=== PATIENT | male | born 1955 | race African-American/Black ===

== ENCOUNTER 2018-12-09 11:47 | Inpatient (IN) | payer OTHER ==
[2018-12-09 12:12] VITALS: BMI 19.9
--- NOTE | 2018-12-09 14:06 | HP ---
COWS - Scale Resting Pulse: 0= [place] 80 or Below Sweatin= Chills/Flushing Restless Observation: 1= Difficult to Sit Still Pupil Size: 2= Moderately Dilated Bone or Joint Aches: 2= Severe Diffuse Aches Runny Nose/ Eye Tearin= Runny Nose/Eyes GI Upset > 30mins: 2= Nausea/Diarrhea Tremor Observation: 0= None Yawning Observation: 0= None Anxiety or Irritability: 2=Irritable/Anxious Goose Flesh Skin: 0=Smooth Skin COWS Score: 12 CIWA Score Nausea/Vomitin Muscle Tremors: None Anxiety: 3 Agitation: 3 Paroxysmal Sweats: 2 Orientation: 1-Uncertain about Date Tacttile Disturbances: 0-None Auditory Disturbances: 0-None Visual Disturbances: 0-None Headache: 3-Moderate CIWA-Ar Total Score: 14 - Admission Criteria [facility] Guidelines: Admission for Medically Managed Detox: Requires at least one of the followin. CIWA greater than 12 2. Seizures within the past 24 hours 3. Delirium tremens within the past 24 hours 4. Hallucinations within the past 24 hours 5. Acute intervention needed for co occurring medical disorder 6. Acute intervention needed for co occurring psychiatric disorder 7. Severe withdrawal that cannot be handled at a lower level of care (continued vomiting, continued diarrhea, abnormal vital signs) requiring intravenous medication and/or fluids 8. Admission [facility] Chief Complaint: PATIENT PRESENTS WITH ETOH/HEROIN WITHDRAWAL SX. Allergies/Adverse Reactions: Allergies Allergy/AdvReac Type Severity Reaction Status Date / Time No Known Allergies Allergy Verified 05/19/16 16:07 History of Present Illness: PATIENT IS KNOWN TO FACILITY DUE TO PREVIOUS ADMISSION. LAST ADMISSION TO DETOX WAS IN 2016. PATIENT STATES HE STARTED SNIFFING HEROIN AT AGE 13 AND USES 10 BAGS DAILY. LAST USE THIS MORNING. DENIES IVDA AND OVERDOSE. PATIENT ALSO DRINKING ETOH AT AGE 13 WELL. DRINKS 1 PINT DAILY, ILENE 0.132, LAST DRINK ONE HOUR AGO. PATIENT DENIES HX OF SEIZURES AND BLACKOUTS. DOES REPORT H/O EYE SUPPLY TECH AND BINGE DRINKING. + SOCIAL MARIJUANA USE. PMH INCLUDES HTN, GERD. DENIES MENTAL ILLNESS AND SI/HI AND SUICIDE ATTEMPTS. Exam Limitations: Intoxication - Ebola screening Have you traveled outside of the country in the last 21 days: No Have you had contact with anyone from an Ebola affected area: No Have you been sick,other than usual withdrawal symptoms: No Do you have a fever: No - Review of Systems Constitutional: Chills, Night Sweats, Changes in sleep, Unintentional Wgt. Loss EENT: reports: Tearing, Nose Congestion Respiratory: reports: No Symptoms reported Cardiac: reports: No Symptoms Reported GI: reports: Diarrhea, Nausea, Poor Fluid Intake, Abdominal cramping : reports: No Symptoms Reported Musculoskeletal: reports: Back Pain, Joint Pain, Muscle Pain Integumentary: reports: Sweating Neuro: reports: Headache Endocrine: reports: Unexplained Weight Loss Hematology: reports: No Symptoms Reported Psychiatric: reports: Anxious (FORGETFUL WITH DATE) Patient History - Patient Medical History Hx Anemia: No Hx Asthma: No Hx Chronic Obstructive Pulmonary Disease (COPD): No Hx Cancer: No Hx Cardiac Disorders: No Hx Congestive Heart Failure: No Hx Hypertension: Yes Hx Hypercholesterolemia: No Hx Pacemaker: No HX Cerebrovascular Accident: No Hx Seizures: No Hx Dementia: No Hx Diabetes: No Hx Gastrointestinal Disorders: Yes (GERD) Hx Liver Disease: No Hx Genitourinary Disorders: No Hx Sexually Transmitted Disorders: No Hx Renal Disease (ESRD): No Hx Thyroid Disease: No Hx Human Immunodeficiency Virus (HIV): No Hx Hepatitis C: No Hx Depression: No Hx Suicide Attempt: No Hx Bipolar Disorder: No Hx Schizophrenia: No - Patient Surgical History Past Surgical History: Yes Hx Neurologic Surgery: No Hx Cataract Extraction: No Hx Cardiac Surgery: No Hx Lung Surgery: No Hx Breast Surgery: No Hx Breast Biopsy: No Hx Abdominal Surgery: No Hx Appendectomy: No Hx Cholecystectomy: No Hx Genitourinary Surgery: No Hx Section: No Hx Orthopedic Surgery: Yes (left wrist fx 2009) Hx Hysterectomy: No Anesthesia Reaction: No - PPD History Previous Implant?: Yes Documented Results: Negative w/o proof Date: 04/30/16 Results: TBD PPD to be Administered?: Yes - Smoking Cessation Smoking history: Current every day smoker Have you smoked in the past 12 months: Yes Aproximately how many cigarettes per day: 20 Hx Chewing Tobacco Use: No Initiated information on smoking cessation: Yes 'Breaking Loose' booklet given: 12/09/18 - Substance & Tx. History Hx Alcohol Use: Yes Hx Substance Use: Yes Substance Use Type: Alcohol, Heroin Hx Substance Use Treatment: Yes - Substances Abused Alcohol Route: Oral Frequency: Daily Amount used: 1 PINT Age of first use: 13 Date of Last Use: 12/09/18 Heroin Route: Inhalation Frequency: Daily Amount used: 10 BAGS Age of first use: 13 Date of Last Use: 12/09/18 Family Disease History - Family Disease History Family Disease History: [place]: Father (BONE CA-), Mother, Other: Grandparent () Admission Physical Exam [facility] - Vital Signs Vital Signs: Vital Signs - 24 hr 12/09/18 12:10 Temperature 98.7 F Pulse Rate 80 Respiratory 18 Rate Blood Pressure 122/74 - Physical General Appearance: Yes: Intoxicated, Thin, Sweating, Anxious HEENTM: Yes: EOMI, Hearing grossly Normal, Normocephalic, Normal Voice, MADELINE, Pharynx Normal, Nasal Congestion Respiratory: Yes: Chest Non-Tender, No Respiratory Distress, No Accessory Muscle Use, Wheezing Neck: Yes: No masses,lesions,Nodules, Supple, Trachea in good position Breast: Yes: Breast Exam Deferred Cardiology: Yes: Regular Rhythm, Regular Rate, S1, S2 Abdominal: Yes: Normal Bowel Sounds, Non Tender, Soft Genitourinary: Yes: Within Normal Limits Back: Yes: Muscle Spasm Musculoskeletal: Yes: full range of Motion, Gait Steady, Back pain, Muscle Pain Extremities: Yes: Normal Inspection, Normal Range of Motion, Non-Tender Neurological: Yes: cmo II-XII NML intact, Alert, Motor Strength 5/5, Normal Response, Other (anxious and forgetful with date) Integumentary: Yes: Normal Color, Warm, Moist - Diagnostic (1) GERD (gastroesophageal reflux disease) Current Visit: Yes Status: Chronic Qualifiers: Esophagitis presence: esophagitis presence not specified Qualified Code(s) : K21.9 - Gastro-esophageal reflux disease without esophagitis (2) Alcohol dependence with uncomplicated withdrawal Current Visit: Yes Status: Acute (3) Hypertension Current Visit: Yes Status: Chronic Qualifiers: Hypertension type: essential hypertension Qualified Code(s): I10 - Essential (primary) hypertension (4) Nicotine dependence Current Visit: Yes Status: Chronic Qualifiers: Nicotine product type: cigarettes Substance use status: uncomplicated Qualified Code(s): F17.210 - Nicotine dependence, cigarettes, uncomplicated (5) Opioid dependence with withdrawal Current Visit: Yes Status: Acute (6) Weight loss Current Visit: Yes Status: Acute Cleared for Admission [facility] - Detox or Rehab [facility] Level of Care: Medically Managed Detox Regimen/Protocol: Methadone/Librium [facility] Breath Alcohol Content Breath Alcohol Content: 0.132 Urine Drug Screen - Results Drug Screen Negative: No Urine Drug Screen Results: THC-Marijuana, OPI-Opiates, BZO-Benzodiazepines Inpatient Rehab Admission - Rehab Decision to Admit Inpatient rehab admission?: No
[2018-12-09] MEDS ORDERED: IBUPROFEN 400 MG TABLET (FP) PO PRN (14:25)
[2018-12-09] MEDS ORDERED: MENTHOL/PHENOL 1 EACH UD MM PRN (14:25)
[2018-12-09] MEDS ORDERED: BISMUTH SUBSALICYLATE 524 MG/30 ML UD PO PRN (14:25)
[2018-12-09] MEDS ORDERED: hydrOXYzine PAMOATE 25 MG CAPSULE (FP) PO PRN (14:25)
[2018-12-09] MEDS ORDERED: MAGNESIUM CITRATE 300 ML BOTTLE PO PRN (14:25)
[2018-12-09] MEDS ORDERED: METHOCARBAMOL 500 MG TABLET PO PRN (14:25)
[2018-12-09] MEDS ORDERED: MAG HYDROX/AL HYDROX/SIMETH 30 ML UNIT-DOSE CUP PO PRN (14:25)
[2018-12-09] MEDS ORDERED: MELATONIN 5 MG TABLETS PO PRN (14:25)
[2018-12-09] MEDS ORDERED: NICOTINE POLACRILEX 2 MG GUM BUC PRN (14:25)
[2018-12-09] MEDS ORDERED: MAGNESIUM HYDROX 2400MG/30ML ORAL SUSPENSION 30 ML CUP PO PRN (14:25)
[2018-12-09] MEDS ORDERED: ACETAMINOPHEN 325 MG TABLET (FP) PO PRN (14:25)
[2018-12-09] MEDS ORDERED: guaiFENesin 200 MG/10 ML 10 ML UNIT-DOSE CUPS PO PRN (14:25)
[2018-12-09] MEDS ORDERED: cloNIDine HCL 0.1 MG TABLET PO PRN (14:27)
[2018-12-09] MEDS ORDERED: NALOXONE HCL 0.4 MG/ML VIAL IVPUSH PRN (14:27)
[2018-12-09] MEDS ORDERED: METHADONE HCL 10 MG TABLET (FOR DETOX USE ONLY) PO ONE ×2 (14:28→23:00)
[2018-12-09] MEDS ORDERED: chlordiazePOXIDE HCL 25 MG CAPSULE PO PRN (14:29)
[2018-12-09] MEDS: chlordiazePOXIDE HCL 25 MG CAPSULE PO SCH ×2 (17:11→22:31)
[2018-12-09] MEDS: THIAMINE HCL 100 MG TABLET (FP) PO SCH (22:31)
[2018-12-10 05:19] LABS: EPI CELLS 14.3 /HPF (0-5); HYALINE CASTS 80 /hpf (0-8); URINE APPEARANCE TURBID; URINE BACTERIA 8846.226 /hpf (NEGATIVE); URINE BILIRUBIN 1+ (NEGATIVE); URINE COLOR DK YELLOW; URINE GLUCOSE (UA) NEGATIVE (NEGATIVE); URINE KETONE TRACE (NEGATIVE); URINE LEUK ESTERASE 1+ (NEGATIVE); URINE NITRITE POSITIVE (NEGATIVE); URINE PROTEIN 1+ (NEGATIVE); URINE WBC 30 /hpf (0-5)
[2018-12-10] MEDS: chlordiazePOXIDE HCL 25 MG CAPSULE PO SCH ×4 (05:38→22:22)
[2018-12-10] MEDS ORDERED: ONDANSETRON *ODT* 4 MG TABLET SL ONE (09:09)
--- NOTE | 2018-12-10 09:30 | EKG ---
Test Reason : Blood Pressure : / mmHG Vent. Rate : 075 BPM Atrial Rate : 075 BPM P-R Int : 208 ms QRS Dur : 086 ms QT Int : 394 ms P-R-T Axes : 069 018 062 degrees QTc Int : 439 ms NORMAL SINUS RHYTHM SEPTAL INFARCT , AGE UNDETERMINED ABNORMAL ECG WHEN COMPARED WITH ECG OF 12-MAY-2016 12:12, VENT. RATE HAS INCREASED BY 34 BPM SEPTAL INFARCT IS NOW PRESENT Confirmed by CHINEDU RILEY, CHANDNI ([id number]) on 12/10/2018 9:29:29 AM Referred By: Confirmed By:CHANDNI CHE MD
[2018-12-10] MEDS ORDERED: METHADONE HCL 10 MG TABLET (FOR DETOX USE ONLY) PO ONE (10:00)
[2018-12-10] MEDS: amLODIPine BESYLATE 5 MG TABLET (FP) PO SCH (10:12)
[2018-12-10] MEDS: PANTOPRAZOLE 40 MG TABLET (FP) PO SCH (10:12)
[2018-12-10] MEDS: NICOTINE 21 MG/24 HOURS TOPICAL PATCH TD SCH (10:12)
[2018-12-10] MEDS: PRENATAL VITAMINS W/ FOLIC ACID TABLET (FP) PO SCH (10:12)
[2018-12-10] MEDS: LOSARTAN POTASSIUM 25 MG TABLET PO SCH (10:12)
[2018-12-10 10:44] LABS: URINE RBC 13.7 /hpf (0-4)
[2018-12-10 12:15] LABS: HEMATOCRIT 38.6 % (35.4-49); HEMOGLOBIN 13.1 GM/dL (11.7-16.9); MCH 32.1 pg (25.7-33.7); MCHC 34.1 g/dl (32.0-35.9); MEAN CELL VOLUME 94.3 fl (80-96); MEAN PLT VOLUME 9.5 fl (7.5-11.1); PLATELET COUNT 205 K/MM3 (134-434); RBC 4.09 M/mm3 (4.00-5.60); RDW 13.6 % (11.9-15.9); WHITE BLOOD COUNT 6.4 K/mm3 (4.0-10.0)
[2018-12-10 12:49] LABS: ALBUMIN 3.4 g/dl (3.4-5.0); ALK PHOS 55 U/L (45-117); ANION GAP 9 MMOL/L (8-16); BILIRUBIN,TOTAL 0.6 mg/dL (0.2-1); BLOOD UREA NITROGEN 12 mg/dL (7-18); CALCIUM 8.7 mg/dL (8.5-10.1); CHLORIDE 103 mmol/L (98-107); CO2 29 mmol/L (21-32); CREATININE 0.7 mg/dL (0.55-1.3); GLUCOSE,RANDOM 81 mg/dL (74-106); SGOT/AST 51 U/L (15-37); SGPT/ALT 40 U/L (13-61); SODIUM 141 mmol/L (136-145); TOT PROT 6.7 g/dl (6.4-8.2)
--- NOTE | 2018-12-10 14:03 | PN ---
S CIWA - CIWA Score Nausea/Vomitin-Mild Nausea/No Vomiting Muscle Tremors: 3 Anxiety: 2 Agitation: 1-Slight > Activity Paroxysmal Sweats: 1-Minimal Palms Moist Orientation: 1-Uncertain about Date Tacttile Disturbances: 0-None Auditory Disturbances: 0-None Visual Disturbances: 0-None Headache: 1-Very Mild CIWA-Ar Total Score: 10 S Progress Note (SOAP) Subjective: feeling nausea this morning received one dose zofran doing better had breakfast Objective: 12/10/18 14:01 Vital Signs Temperature 97.0 F L 12/10/18 13:22 Pulse Rate 73 12/10/18 13:22 Respiratory Rate 16 12/10/18 13:22 Blood Pressure 157/99 12/10/18 13:22 O2 Sat by Pulse Oximetry (%) Laboratory Last Values WBC 6.4 K/mm3 (4.0-10.0) 12/10/18 07:30 RBC 4.09 M/mm3 (4.00-5.60) 12/10/18 07:30 Hgb 13.1 GM/dL (11.7-16.9) 12/10/18 07:30 Hct 38.6 % (35.4-49) 12/10/18 07:30 MCV 94.3 fl (80-96) 12/10/18 07:30 MCH 32.1 pg (25.7-33.7) 12/10/18 07:30 MCHC 34.1 g/dl (32.0-35.9) 12/10/18 07:30 RDW 13.6 % (11.9-15.9) 12/10/18 07:30 Plt Count 205 K/MM3 (134-434) D 12/10/18 07:30 MPV 9.5 fl (7.5-11.1) 12/10/18 07:30 Sodium 141 mmol/L (136-145) 12/10/18 07:30 Potassium 4.0 mmol/L (3.5-5.1) 12/10/18 07:30 Chloride 103 mmol/L (98-107) 12/10/18 07:30 Carbon Dioxide 29 mmol/L (21-32) 12/10/18 07:30 Anion Gap 9 MMOL/L (8-16) 12/10/18 07:30 BUN 12 mg/dL (7-18) 12/10/18 07:30 Creatinine 0.7 mg/dL (0.55-1.3) 12/10/18 07:30 Creat Clearance w eGFR 113.18 (>60) 12/10/18 07:30 Random Glucose 81 mg/dL (74-106) 12/10/18 07:30 Calcium 8.7 mg/dL (8.5-10.1) 12/10/18 07:30 Total Bilirubin 0.6 mg/dL (0.2-1) 12/10/18 07:30 AST 51 U/L (15-37) H 12/10/18 07:30 ALT 40 U/L (13-61) 12/10/18 07:30 Alkaline Phosphatase 55 U/L (45-117) 12/10/18 07:30 Total Protein 6.7 g/dl (6.4-8.2) 12/10/18 07:30 Albumin 3.4 g/dl (3.4-5.0) 12/10/18 07:30 Urine Color Dk yellow 12/10/18 00:05 Urine Appearance Turbid 12/10/18 00:05 Urine pH 5.0 (5.0-8.0) 12/10/18 00:05 Ur Specific [place] 1.022 (1.010-1.035) 12/10/18 00:05 Urine Protein 1+ (NEGATIVE) H 12/10/18 00:05 Urine Glucose (UA) Negative (NEGATIVE) 12/10/18 00:05 Urine Ketones Trace (NEGATIVE) H 12/10/18 00:05 Urine Blood Negative (NEGATIVE) 12/10/18 00:05 Urine Nitrite Positive (NEGATIVE) H 12/10/18 00:05 Urine Bilirubin 1+ (NEGATIVE) H 12/10/18 00:05 Urine Urobilinogen 1.0 mg/dL (0.2-1.0) 12/10/18 00:05 Ur Leukocyte Esterase 1+ (NEGATIVE) H 12/10/18 00:05 Urine WBC (Auto) 30 /hpf (0-5) 12/10/18 00:05 Urine RBC (Auto) 13.7 /hpf (0-4) 12/10/18 00:05 Urine Casts (Auto) 80 /hpf (0-8) 12/10/18 00:05 U Pathogenic Cast Auto None seen (NEGATIVE) 12/10/18 00:05 U Epithel Cells (Auto) 14.3 /HPF (0-5) 12/10/18 00:05 Urine Bacteria (Auto) 8846.226 /hpf (NEGATIVE) 12/10/18 00:05 RPR Titer Nonreactive (NONREACTIVE) 12/10/18 07:30 HIV 1&2 Antibody Screen Negative 12/10/18 07:30 HIV P24 Antigen Negative 12/10/18 07:30 lab noted uti Assessment: 12/10/18 14:03 withdrawal sx uti Plan: continue detox zofran bactrium ds bid
[2018-12-10] MEDS: SULFAMETHOXAZOLE/TRIMETHOPRIM 800MG/160MG D.S. TABLET PO SCH ×2 (16:03→22:22)
[2018-12-10] MEDS: THIAMINE HCL 100 MG TABLET (FP) PO SCH (22:21)
[2018-12-11] MEDS: chlordiazePOXIDE HCL 25 MG CAPSULE PO SCH ×2 (05:11→10:32)
[2018-12-11] MEDS: PRENATAL VITAMINS W/ FOLIC ACID TABLET (FP) PO SCH (09:50)
[2018-12-11] MEDS: PANTOPRAZOLE 40 MG TABLET (FP) PO SCH (09:50)
[2018-12-11] MEDS: amLODIPine BESYLATE 5 MG TABLET (FP) PO SCH (09:50)
[2018-12-11] MEDS: SULFAMETHOXAZOLE/TRIMETHOPRIM 800MG/160MG D.S. TABLET PO SCH ×2 (09:51→22:34)
[2018-12-11] MEDS: LOSARTAN POTASSIUM 25 MG TABLET PO SCH (09:51)
[2018-12-11] MEDS: NICOTINE 21 MG/24 HOURS TOPICAL PATCH TD SCH (09:53)
[2018-12-11] MEDS ORDERED: METHADONE HCL 10 MG TABLET (FOR DETOX USE ONLY) PO ONE (10:00)
[2018-12-11] MEDS ORDERED: GABAPENTIN 100 MG CAPSULE (FP) PO ONE (10:00)
--- NOTE | 2018-12-11 13:36 | PN ---
[facility] COWS - Scale Resting Pulse: 0= [place] 80 or Below Sweatin= Chills/Flushing Restless Observation: 0= Sits Still Pupil Size: 0= Normal to Room Light Bone or Joint Aches: 2= Severe Diffuse Aches Runny Nose/ Eye Tearin= Nasal Congestion GI Upset > 30mins: 1= Stomach Cramp Tremor Observation of Outstretched Hands: 2= Slight Tremor Visible Yawning Observation: 2= >3x During Session Anxiety or Irritability: 2=Irritable/Anxious Goose Flesh Skin: 0=Smooth Skin COWS Score: 11
[2018-12-11] MEDS: GABAPENTIN 100 MG CAPSULE (FP) PO SCH ×2 (13:38→22:34)
--- NOTE | 2018-12-11 13:38 | PN ---
[facility] CIWA - CIWA Score Nausea/Vomitin-No Nausea/No Vomiting Muscle Tremors: 2 Anxiety: 1-Mildly Anxious Agitation: 1-Slight > Activity Paroxysmal Sweats: 1-Minimal Palms Moist Orientation: 0-Oriented Tacttile Disturbances: 0-None Auditory Disturbances: 0-None Visual Disturbances: 0-None Headache: 0-None Present CIWA-Ar Total Score: 5 S COWS - Scale Resting Pulse: 0= [place] 80 or Below Sweatin= Chills/Flushing Restless Observation: 0= Sits Still Pupil Size: 0= Normal to Room Light Bone or Joint Aches: 1= Mild Discomfort Runny Nose/ Eye Tearin= Nasal Congestion GI Upset > 30mins: 2= Nausea/Diarrhea Tremor Observation of Outstretched Hands: 2= Slight Tremor Visible Yawning Observation: 0= None Anxiety or Irritability: 2=Irritable/Anxious Goose Flesh Skin: 0=Smooth Skin COWS Score: 9 S Progress Note (SOAP) Subjective: diarrhea muscle cramping adominal cramping treated with bentyl Objective: 12/11/18 13:47 Vital Signs Temperature 97.7 F 12/11/18 09:22 Pulse Rate 65 12/11/18 09:22 Respiratory Rate 18 12/11/18 09:22 Blood Pressure 133/87 12/11/18 09:22 O2 Sat by Pulse Oximetry (%) Laboratory Last Values WBC 6.4 K/mm3 (4.0-10.0) 12/10/18 07:30 RBC 4.09 M/mm3 (4.00-5.60) 12/10/18 07:30 Hgb 13.1 GM/dL (11.7-16.9) 12/10/18 07:30 Hct 38.6 % (35.4-49) 12/10/18 07:30 MCV 94.3 fl (80-96) 12/10/18 07:30 MCH 32.1 pg (25.7-33.7) 12/10/18 07:30 MCHC 34.1 g/dl (32.0-35.9) 12/10/18 07:30 RDW 13.6 % (11.9-15.9) 12/10/18 07:30 Plt Count 205 K/MM3 (134-434) D 12/10/18 07:30 MPV 9.5 fl (7.5-11.1) 12/10/18 07:30 Sodium 141 mmol/L (136-145) 12/10/18 07:30 Potassium 4.0 mmol/L (3.5-5.1) 12/10/18 07:30 Chloride 103 mmol/L (98-107) 12/10/18 07:30 Carbon Dioxide 29 mmol/L (21-32) 12/10/18 07:30 Anion Gap 9 MMOL/L (8-16) 12/10/18 07:30 BUN 12 mg/dL (7-18) 12/10/18 07:30 Creatinine 0.7 mg/dL (0.55-1.3) 12/10/18 07:30 Creat Clearance w eGFR 113.18 (>60) 12/10/18 07:30 Random Glucose 81 mg/dL (74-106) 12/10/18 07:30 Calcium 8.7 mg/dL (8.5-10.1) 12/10/18 07:30 Total Bilirubin 0.6 mg/dL (0.2-1) 12/10/18 07:30 AST 51 U/L (15-37) H 12/10/18 07:30 ALT 40 U/L (13-61) 12/10/18 07:30 Alkaline Phosphatase 55 U/L (45-117) 12/10/18 07:30 Total Protein 6.7 g/dl (6.4-8.2) 12/10/18 07:30 Albumin 3.4 g/dl (3.4-5.0) 12/10/18 07:30 Urine Color Dk yellow 12/10/18 00:05 Urine Appearance Turbid 12/10/18 00:05 Urine pH 5.0 (5.0-8.0) 12/10/18 00:05 Ur Specific [place] 1.022 (1.010-1.035) 12/10/18 00:05 Urine Protein 1+ (NEGATIVE) H 12/10/18 00:05 Urine Glucose (UA) Negative (NEGATIVE) 12/10/18 00:05 Urine Ketones Trace (NEGATIVE) H 12/10/18 00:05 Urine Blood Negative (NEGATIVE) 12/10/18 00:05 Urine Nitrite Positive (NEGATIVE) H 12/10/18 00:05 Urine Bilirubin 1+ (NEGATIVE) H 12/10/18 00:05 Urine Urobilinogen 1.0 mg/dL (0.2-1.0) 12/10/18 00:05 Ur Leukocyte Esterase 1+ (NEGATIVE) H 12/10/18 00:05 Urine WBC (Auto) 30 /hpf (0-5) 12/10/18 00:05 Urine RBC (Auto) 13.7 /hpf (0-4) 12/10/18 00:05 Urine Casts (Auto) 80 /hpf (0-8) 12/10/18 00:05 U Pathogenic Cast Auto None seen (NEGATIVE) 12/10/18 00:05 U Epithel Cells (Auto) 14.3 /HPF (0-5) 12/10/18 00:05 Urine Bacteria (Auto) 8846.226 /hpf (NEGATIVE) 12/10/18 00:05 RPR Titer Nonreactive (NONREACTIVE) 12/10/18 07:30 HIV 1&2 Antibody Screen Negative 12/10/18 07:30 HIV P24 Antigen Negative 12/10/18 07:30 lab noted Assessment: 12/11/18 13:50 alcohol and opiate withdrawal sx Plan: continue detox
[2018-12-11] MEDS ORDERED: cloNIDine HCL 0.1 MG TABLET PO PRN (13:49)
[2018-12-11] MEDS ORDERED: BISMUTH SUBSALICYLATE 262 MG TAB.CHEW PO ONE (14:00)
[2018-12-11] MEDS ORDERED: DICYCLOMINE HCL 10 MG CAPSULE PO ONE (14:00)
[2018-12-11] MEDS ORDERED: BISMUTH SUBSALICYLATE 262 MG/15 ML BTL PO ONE (14:09)
[2018-12-11] MEDS: RANITIDINE HCL 150 MG TABLET (FP) PO SCH ×2 (15:34→22:34)
[2018-12-11] MEDS ORDERED: chlordiazePOXIDE HCL 10 MG CAPSULE PO PRN (17:00)
[2018-12-11] MEDS: chlordiazePOXIDE HCL 10 MG CAPSULE PO SCH ×2 (18:10→22:34)
[2018-12-11] MEDS: THIAMINE HCL 100 MG TABLET (FP) PO SCH (22:33)
[2018-12-12] MEDS: GABAPENTIN 100 MG CAPSULE (FP) PO SCH (06:13)
[2018-12-12] MEDS: chlordiazePOXIDE HCL 10 MG CAPSULE PO SCH ×2 (06:13→10:10)
[2018-12-12 09:14] VITALS: BP 149/92; PULSE 61; TEMP 96.8
[2018-12-12] MEDS ORDERED: METHADONE HCL 10 MG TABLET (FOR DETOX USE ONLY) PO ONE (10:00)
[2018-12-12] MEDS: amLODIPine BESYLATE 5 MG TABLET (FP) PO SCH (10:10)
[2018-12-12] MEDS: SULFAMETHOXAZOLE/TRIMETHOPRIM 800MG/160MG D.S. TABLET PO SCH (10:10)
[2018-12-12] MEDS: LOSARTAN POTASSIUM 25 MG TABLET PO SCH (10:10)
[2018-12-12] MEDS: RANITIDINE HCL 150 MG TABLET (FP) PO SCH (10:10)
[2018-12-12] MEDS: PRENATAL VITAMINS W/ FOLIC ACID TABLET (FP) PO SCH (10:11)
[2018-12-12] MEDS: NICOTINE 21 MG/24 HOURS TOPICAL PATCH TD SCH (10:11)
--- NOTE | 2018-12-12 12:28 | DS ---
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 pharmacy contine uti treatment bring in medication list and lab report to aftercare appointment - Physical Exam Results Vital Signs: Vital Signs Temperature 96.8 F L 12/12/18 09:13 Pulse Rate 61 12/12/18 09:13 Respiratory Rate 18 12/12/18 09:13 Blood Pressure 149/92 12/12/18 09:13 O2 Sat by Pulse Oximetry (%) Pertinent Admission Physical Exam Findings: Vital Signs Temperature 96.8 F L 12/12/18 09:13 Pulse Rate 61 12/12/18 09:13 Respiratory Rate 18 12/12/18 09:13 Blood Pressure 149/92 12/12/18 09:13 O2 Sat by Pulse Oximetry (%) Laboratory Last Values WBC 6.4 K/mm3 (4.0-10.0) 12/10/18 07:30 RBC 4.09 M/mm3 (4.00-5.60) 12/10/18 07:30 Hgb 13.1 GM/dL (11.7-16.9) 12/10/18 07:30 Hct 38.6 % (35.4-49) 12/10/18 07:30 MCV 94.3 fl (80-96) 12/10/18 07:30 MCH 32.1 pg (25.7-33.7) 12/10/18 07:30 MCHC 34.1 g/dl (32.0-35.9) 12/10/18 07:30 RDW 13.6 % (11.9-15.9) 12/10/18 07:30 Plt Count 205 K/MM3 (134-434) D 12/10/18 07:30 MPV 9.5 fl (7.5-11.1) 12/10/18 07:30 Sodium 141 mmol/L (136-145) 12/10/18 07:30 Potassium 4.0 mmol/L (3.5-5.1) 12/10/18 07:30 Chloride 103 mmol/L (98-107) 12/10/18 07:30 Carbon Dioxide 29 mmol/L (21-32) 12/10/18 07:30 Anion Gap 9 MMOL/L (8-16) 12/10/18 07:30 BUN 12 mg/dL (7-18) 12/10/18 07:30 Creatinine 0.7 mg/dL (0.55-1.3) 12/10/18 07:30 Creat Clearance w eGFR 113.18 (>60) 12/10/18 07:30 Random Glucose 81 mg/dL (74-106) 12/10/18 07:30 Calcium 8.7 mg/dL (8.5-10.1) 12/10/18 07:30 Total Bilirubin 0.6 mg/dL (0.2-1) 12/10/18 07:30 AST 51 U/L (15-37) H 12/10/18 07:30 ALT 40 U/L (13-61) 12/10/18 07:30 Alkaline Phosphatase 55 U/L (45-117) 12/10/18 07:30 Total Protein 6.7 g/dl (6.4-8.2) 12/10/18 07:30 Albumin 3.4 g/dl (3.4-5.0) 12/10/18 07:30 Urine Color Dk yellow 12/10/18 00:05 Urine Appearance Turbid 12/10/18 00:05 Urine pH 5.0 (5.0-8.0) 12/10/18 00:05 Ur Specific [place] 1.022 (1.010-1.035) 12/10/18 00:05 Urine Protein 1+ (NEGATIVE) H 12/10/18 00:05 Urine Glucose (UA) Negative (NEGATIVE) 12/10/18 00:05 Urine Ketones Trace (NEGATIVE) H 12/10/18 00:05 Urine Blood Negative (NEGATIVE) 12/10/18 00:05 Urine Nitrite Positive (NEGATIVE) H 12/10/18 00:05 Urine Bilirubin 1+ (NEGATIVE) H 12/10/18 00:05 Urine Urobilinogen 1.0 mg/dL (0.2-1.0) 12/10/18 00:05 Ur Leukocyte Esterase 1+ (NEGATIVE) H 12/10/18 00:05 Urine WBC (Auto) 30 /hpf (0-5) 12/10/18 00:05 Urine RBC (Auto) 13.7 /hpf (0-4) 12/10/18 00:05 Urine Casts (Auto) 80 /hpf (0-8) 12/10/18 00:05 U Pathogenic Cast Auto None seen (NEGATIVE) 12/10/18 00:05 U Epithel Cells (Auto) 14.3 /HPF (0-5) 12/10/18 00:05 Urine Bacteria (Auto) 8846.226 /hpf (NEGATIVE) 12/10/18 00:05 RPR Titer Nonreactive (NONREACTIVE) 12/10/18 07:30 HIV 1&2 Antibody Screen Negative 12/10/18 07:30 HIV P24 Antigen Negative 12/10/18 07:30 lab noted - Treatment Hospital Course: Detox Protocol Followed, Detoxed Safely, Responded well, Discharged Condition Good, Rehab Referral Accepted Patient has Accepted a Re[facility] Referral [facility] - Medication Discharge Medications: Ambulatory Orders Omeprazole Magnesium [Prilosec Otc] 40 cap PO DAILY 12/09/18 Amlodipine Besylate 5 mg PO DAILY #14 tablet 12/12/18 Losartan Potassium 25 mg PO DAILY #14 tablet 12/12/18 Naloxone HCl [Narcan -] 0.4 mg IVPUSH PRN PRN #1 vial 12/12/18 Sulfamethoxazole/Trimethoprim [Bactrim DS -] 1 each PO BID #10 tablet 12/12/18 - Diagnosis (1) UTI (urinary tract infection) Status: Suspected Qualifiers: Urinary tract infection type: site unspecified Hematuria presence: without hematuria Qualified Code(s): N39.0 - Urinary tract infection, site not specified (2) Alcohol dependence with uncomplicated withdrawal Status: Acute (3) Opioid dependence with withdrawal Status: Acute (4) Weight loss Status: Acute (5) GERD (gastroesophageal reflux disease) Status: Chronic Qualifiers: Esophagitis presence: without esophagitis Qualified Code(s): K21.9 - Gastro -esophageal reflux disease without esophagitis (6) Nicotine dependence Status: Acute Qualifiers: Nicotine product type: cigarettes Substance use status: in withdrawal Qualified Code(s): F17.213 - Nicotine dependence, cigarettes, with withdrawal - AMA Did Patient Leave Against Medical Advice: No
[2018-12-12] MEDS ORDERED: chlordiazePOXIDE HCL 10 MG CAPSULE PO SCH (17:00)
[2018-12-13] MEDS ORDERED: METHADONE HCL 5 MG TABLET (FOR DETOX USE ONLY) PO ONE (06:00)
== END 2018-12-12 11:22 | disposition home or self-care (01) | DRG 897 ==
LOC: YASAS 11:47 → Y3N 15:29
PROVIDERS: ADMIT Surgery; ATTEND Surgery
PROC: HZ2ZZZZ Detoxification Services for Substance Abuse Treatment (ICD-10-PCS; principal; 2018-12-09)
DX: F11.23 Opioid dependence with withdrawal (principal); N39.0 Urinary tract infection, site not specified; F10.230 Alcohol dependence with withdrawal, uncomplicated; F17.213 Nicotine dependence, cigarettes, with withdrawal; I10 Essential (primary) hypertension; K21.9 Gastro-esophageal reflux disease without esophagitis; R63.4 Abnormal weight loss
CPT/HCPCS: 36415; 80053; 81003; 85027; 86593; 87389; 93005; 93010; J0735; Q0162

== ENCOUNTER 2019-04-23 10:34 | Inpatient (IN) | payer MEDICARE, OTHER ==
[2019-04-23 12:11] VITALS: BMI 21.7
[2019-04-23] MEDS ORDERED: hydrOXYzine HCL 25 MG TABLET (FP) PO PRN (15:09)
[2019-04-23] MEDS ORDERED: ACETAMINOPHEN 325 MG TABLET (FP) PO PRN ×2 (15:09)
[2019-04-23] MEDS ORDERED: MAGNESIUM CITRATE 300 ML BOTTLE PO PRN (15:09)
[2019-04-23] MEDS ORDERED: BISMUTH SUBSALICYLATE 262 MG/15 ML BTL PO PRN (15:09)
[2019-04-23] MEDS ORDERED: MENTHOL/PHENOL 1 EACH UD MM PRN (15:09)
[2019-04-23] MEDS ORDERED: METHOCARBAMOL 500 MG TABLET PO PRN (15:09)
[2019-04-23] MEDS ORDERED: MAG HYDROX/AL HYDROX/SIMETH 30 ML UNIT-DOSE CUP PO PRN (15:09)
[2019-04-23] MEDS ORDERED: MELATONIN 5 MG TABLETS PO PRN (15:09)
[2019-04-23] MEDS ORDERED: MAGNESIUM HYDROX 2400MG/30ML ORAL SUSPENSION 30 ML CUP PO PRN (15:09)
--- NOTE | 2019-04-23 15:26 | PN ---
Teaching Attending Note Name of Resident: Heide Freeman ATTENDING PHYSICIAN STATEMENT I saw and evaluated the patient. I reviewed the resident's note and discussed the case with the resident. I agree with the resident's findings and plan as documented. SUBJECTIVE: this 63 years old male with alcohol,benzodiazepam dependence,on suboxone maintenance 8mg/2 mg sl flim tid,last filled yesterday OBJECTIVE: withdrawal signs and symptom Vital Signs Temperature 97.7 F 04/23/19 13:02 Pulse Rate 70 04/23/19 13:02 Respiratory Rate 20 04/23/19 13:02 Blood Pressure 163/105 H 04/23/19 13:02 O2 Sat by Pulse Oximetry (%) ASSESSMENT AND PLAN: for inpatient detox valium regimen,patient like to be on suboxone maintenance 8mg/2mg film tid, medically managed detox
[2019-04-23] MEDS: BUPRENORPHINE/NALOXONE 8 MG/2 MG FILM PACKET SL SCH ×2 (15:45→22:35)
[2019-04-23] MEDS: diazePAM 5 MG TABLET PO SCH ×2 (15:46→22:35)
--- NOTE | 2019-04-23 15:58 | HP ---
COWS - Scale Resting Pulse: 1= NE 81-100 Sweatin= Chills/Flushing Restless Observation: 1= Difficult to Sit Still Pupil Size: 1= Pupils >than Normal Bone or Joint Aches: 1= Mild Discomfort Runny Nose/ Eye Tearin= None GI Upset > 30mins: 3= Vomiting/Diarrhea Tremor Observation: 2= Slight Tremor Visible Yawning Observation: 2= >3x During Session Anxiety or Irritability: 2=Irritable/Anxious Goose Flesh Skin: 0=Smooth Skin COWS Score: 14 CIWA Score Nausea/Vomitin Muscle Tremors: 3 Anxiety: 3 Agitation: 3 Paroxysmal Sweats: 1-Minimal Palms Moist Orientation: 0-Oriented Tacttile Disturbances: 0-None Auditory Disturbances: 0-None Visual Disturbances: 0-None Headache: 1-Very Mild CIWA-Ar Total Score: 16 - Admission Criteria OASAS Guidelines: Admission for Medically Managed Detox: Requires at least one of the followin. CIWA greater than 12 2. Seizures within the past 24 hours 3. Delirium tremens within the past 24 hours 4. Hallucinations within the past 24 hours 5. Acute intervention needed for co occurring medical disorder 6. Acute intervention needed for co occurring psychiatric disorder 7. Severe withdrawal that cannot be handled at a lower level of care (continued vomiting, continued diarrhea, abnormal vital signs) requiring intravenous medication and/or fluids 8. Admission ROS [facility] Chief Complaint: detox from heroin and ETOH Allergies/Adverse Reactions: Allergies Allergy/AdvReac Type Severity Reaction Status Date / Time No Known Allergies Allergy Verified 04/23/19 12:06 History of Present Illness: Mr. Nelson is a 63yo male with hx of heroin use disorder, ETOH use disorder, and HTN who presents for detox from heroin and ETOH. Last known detox was at end of November this year at this facility. He is currently attending [facility] for outpt rehab. His PCP, Dr. Gamble, prescribes his Suboxone since February. He has been getting his scripts filled but reports he has not been taking it for about 2 weeks. Per [facility], he last filled it yesterday. He also has been prescribed lorazepam and diazepam for ETOH withdrawal as well as vitamins and losartan. He reports wanting to get clean from all the meds he is on then restart Suboxone. He is currently sniffing 8-10 bags of heroin/day with last use at 5am. He has been using for 40-50 years. He also drinks 1/2 pint of vodka and 2-3 beers daily with last use at 11pm last night. He denies hx of seizures but may have had blackouts. He has been drinking 40-50 years as well. He reports growing up in an area where drug and alcohol use was common place, so he began using because it was around. He reports occasional marijuana use, last being 2 days ago. He smokes 1ppd of cigarettes x 30-35 years. He lives at home with his . Pt is anxious about experiencing withdrawal symptoms currently. He currently reports abdominal cramps, vomiting, tremors, mild body aches, and anxiety. He denies CLAUDIO, dizziness, nausea, diarrhea, chest pain, and SOB. CIWA 16 COWS 14 PMH: heroin use disorder, ETOH use disorder, HTN surgical hx: L wrist family hx: mom-HTN, denies any family hx of substance abuse meds: losartan, gabapentin, lorazepam allergies: NKDA - Ebola screening Have you traveled outside of the country in the last 21 days: No Have you had contact with anyone from an Ebola affected area: No Do you have a fever: No - Review of Systems Constitutional: Diaphoresis, Night Sweats Respiratory: denies: Cough, Shortness of Breath Cardiac: denies: Chest Pain GI: reports: Vomiting (x1), Abdominal cramping. denies: Diarrhea, Nausea : reports: No Symptoms Reported Musculoskeletal: reports: Muscle Pain (mild) Integumentary: reports: No Symptoms Reported Neuro: denies: Headache, Paresthesia, Dizziness Endocrine: denies: No Symptoms Reported Psychiatric: reports: Orientated x3, Agitated Patient History - Patient Medical History Hx Anemia: No Hx Asthma: No Hx Chronic Obstructive Pulmonary Disease (COPD): No Hx Cancer: No Hx Cardiac Disorders: No Hx Congestive Heart Failure: No Hx Hypertension: Yes Hx Hypercholesterolemia: No Hx Pacemaker: No HX Cerebrovascular Accident: No Hx Seizures: No Hx Dementia: No Hx Diabetes: No Hx Gastrointestinal Disorders: No Hx Liver Disease: No Hx Genitourinary Disorders: No Hx Sexually Transmitted Disorders: No Hx Renal Disease (ESRD): No Hx Thyroid Disease: No Hx Human Immunodeficiency Virus (HIV): No Hx Hepatitis C: No Hx Depression: No Hx Suicide Attempt: No Hx Bipolar Disorder: No Hx Schizophrenia: No - Patient Surgical History Past Surgical History: Yes Hx Neurologic Surgery: No Hx Cataract Extraction: No Hx Cardiac Surgery: No Hx Lung Surgery: No Hx Breast Surgery: No Hx Breast Biopsy: No Hx Abdominal Surgery: No Hx Appendectomy: No Hx Cholecystectomy: No Hx Genitourinary Surgery: No Hx Section: No Hx Orthopedic Surgery: Yes (left wrist fx 2010) Hx Hysterectomy: No Anesthesia Reaction: No - PPD History Documented Results: Negative w/proof Date: 12/11/18 Results: 0mm - Smoking Cessation Smoking history: Current every day smoker Have you smoked in the past 12 months: Yes Aproximately how many cigarettes per day: 20 Hx Chewing Tobacco Use: No Initiated information on smoking cessation: Yes 'Breaking Loose' booklet given: 04/23/19 - Substance & Tx. History Hx Alcohol Use: Yes Hx Substance Use: Yes Substance Use Type: Alcohol, Heroin, Marijuana - Substances abused Alcohol Substance route: Oral Frequency: Daily Amount used: 1-2 PINTS Age of first use: 13 Date of last use: 04/22/19 Heroin Substance route: Inhalation Frequency: Daily Amount used: 10 BAGS Age of first use: 13 Date of last use: 04/22/19 Marijuana/Hashish Substance route: Inhalation Frequency: 1-2 times per week Family Disease History - Family Disease History Family Disease History: Heart Disease: Mother (HTN), CA: Father (BONE CA- ), Mother, Other: Grandparent () Admission Physical Exam BHS - Vital Signs Vital Signs: Vital Signs - 24 hr 04/23/19 04/23/19 12:08 13:02 Temperature 97.7 F 97.7 F Pulse Rate 70 70 Respiratory 20 20 Rate Blood Pressure 163/105 H 163/105 H - Physical General Appearance: Yes: Irritable HEENTM: Yes: Hearing grossly Normal, MADELINE Respiratory: Yes: No Respiratory Distress, Wheezing (R upper lobe) Neck: Yes: Within Normal Limits Cardiology: Yes: Regular Rhythm, Regular Rate Abdominal: Yes: Normal Bowel Sounds Back: Yes: Within Normal Limits Musculoskeletal: Yes: full range of Motion Extremities: Yes: Normal Range of Motion, Tremors Neurological: 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: 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 NML intact, Fully Oriented, Alert, Motor Strength 5/5, Normal Response Integumentary: Yes: Within Normal Limits - Diagnostic (1) Alcohol dependence with uncomplicated withdrawal Current Visit: Yes Status: Chronic (2) Opioid dependence with withdrawal Current Visit: Yes Status: Chronic (3) Hypertension Current Visit: Yes Status: Chronic Qualifiers: Hypertension type: essential hypertension Qualified Code(s): I10 - Essential (primary) hypertension (4) Nicotine dependence Current Visit: Yes Status: Chronic Qualifiers: Nicotine product type: cigarettes Substance use status: uncomplicated Qualified Code(s): F17.210 - Nicotine dependence, cigarettes, uncomplicated Comment: SMOKING CESSATION REVIEWED PATIENT NOT WILLING TO QUIT SMOKING AT THIS TIME Cleared for Admission S - Detox or Rehab [facility] Level of Care: Medically Managed Breathalyzer - Breathalyzer Breathalyzer: 0.011 Urine Drug Screen - Test Device Lot number: [id number] Expiration date: 01/14/21 - Control Is test valid?: Yes - Results Drug screen NEGATIVE: No Urine drug screen results: THC-Marijuana, FEN-Fentanyl, MOP-Opiates, OXY- Oxycodone, BZO-Benzodiazepines Inpatient Rehab Admission - Rehab Decision to Admit Inpatient rehab admission?: No
[2019-04-23] MEDS ORDERED: cloNIDine HCL 0.1 MG TABLET PO PRN (16:00)
[2019-04-23 16:40] LABS: HEMATOCRIT 40.3 % (35.4-49); HEMOGLOBIN 13.4 GM/dL (11.7-16.9); MCH 31.1 pg (25.7-33.7); MCHC 33.3 g/dl (32.0-35.9); MEAN CELL VOLUME 93.4 fl (80-96); MEAN PLT VOLUME 9.4 fl (7.5-11.1); PLATELET COUNT 241 K/MM3 (134-434); RBC 4.31 M/mm3 (4.00-5.60); WHITE BLOOD COUNT 6.3 K/mm3 (4.0-10.0)
[2019-04-23 16:49] LABS: ALBUMIN 4.2 g/dl (3.4-5.0); BILIRUBIN,TOTAL 0.6 mg/dL (0.2-1); BLOOD UREA NITROGEN 9.4 mg/dL (7-18); CALCIUM 9.2 mg/dL (8.5-10.1); CREATININE 0.7 mg/dL (0.55-1.3); POTASSIUM 3.5 mmol/L (3.5-5.1); TOT PROT 8.3 g/dl (6.4-8.2)
[2019-04-23] MEDS: diazePAM 5 MG TABLET PO PRN (20:39)
[2019-04-23] MEDS: THIAMINE HCL 100 MG TABLET (FP) PO SCH (22:35)
[2019-04-24] MEDS: diazePAM 5 MG TABLET PO PRN (01:45)
[2019-04-24] MEDS: BUPRENORPHINE/NALOXONE 8 MG/2 MG FILM PACKET SL SCH ×3 (06:02→22:18)
[2019-04-24] MEDS: diazePAM 5 MG TABLET PO SCH ×3 (06:02→22:19)
[2019-04-24] MEDS: LOSARTAN POTASSIUM 25 MG TABLET PO SCH (09:44)
[2019-04-24] MEDS: PRENATAL VITAMINS W/ FOLIC ACID TABLET (FP) PO SCH (09:44)
--- NOTE | 2019-04-24 12:04 | PN ---
[facility] CIWA - CIWA Score Nausea/Vomitin-No Nausea/No Vomiting Muscle Tremors: 3 Anxiety: 3 Agitation: 3 Paroxysmal Sweats: 2 Orientation: 0-Oriented Tacttile Disturbances: 0-None Auditory Disturbances: 0-None Visual Disturbances: 0-None Headache: 0-None Present CIWA-Ar Total Score: 11 BHS COWS - Scale Resting Pulse: 0= NC 80 or Below Sweatin=Flushed/Facial Moisture Restless Observation: 1= Difficult to Sit Still Pupil Size: 0= Normal to Room Light Bone or Joint Aches: 2= Severe Diffuse Aches Runny Nose/ Eye Tearin= Nasal Congestion GI Upset > 30mins: 1= Stomach Cramp Tremor Observation of Outstretched Hands: 2= Slight Tremor Visible Yawning Observation: 2= >3x During Session Anxiety or Irritability: 2=Irritable/Anxious Goose Flesh Skin: 0=Smooth Skin COWS Score: 13 S Progress Note (SOAP) Subjective: shakes sweats body aches nausea interrupted sleep agitation irritable Objective: 04/24/19 12:03 Vital Signs Temperature 98.4 F 04/24/19 09:29 Pulse Rate 64 04/24/19 09:29 Respiratory Rate 18 04/24/19 09:29 Blood Pressure 155/89 04/24/19 09:29 O2 Sat by Pulse Oximetry (%) Laboratory Tests 04/23/19 04/23/19 04/23/19 15:10 15:10 15:10 WBC 6.3 RBC 4.31 Hgb 13.4 Hct 40.3 MCV 93.4 MCH 31.1 MCHC 33.3 RDW 13.0 Plt Count 241 MPV 9.4 Sodium 141 Potassium 3.5 Chloride 102 Carbon Dioxide 31 Anion Gap 9 BUN 9.4 Creatinine 0.7 Est GFR (CKD-EPI)AfAm 114.78 Est GFR (CKD-EPI)NonAf 99.03 Random Glucose 111 H Calcium 9.2 Total Bilirubin 0.6 AST 24 ALT 24 Alkaline Phosphatase 87 Total Protein 8.3 H Albumin 4.2 RPR Titer Nonreactive labs noted aaox3 ambulating no acute distress Assessment: 04/24/19 12:03 withdrawal sx Plan: continue detox increase fluids zofran prn motrin/tylenol prn
[2019-04-24] MEDS: THIAMINE HCL 100 MG TABLET (FP) PO SCH (22:18)
[2019-04-24] MEDS: IBUPROFEN 400 MG TABLET (FP) PO PRN (22:19)
[2019-04-25] MEDS ORDERED: diazePAM 5 MG TABLET PO SCH (06:00)
[2019-04-25] MEDS: BUPRENORPHINE/NALOXONE 8 MG/2 MG FILM PACKET SL SCH (06:19)
[2019-04-25] MEDS: PRENATAL VITAMINS W/ FOLIC ACID TABLET (FP) PO SCH (09:41)
[2019-04-25] MEDS: LOSARTAN POTASSIUM 25 MG TABLET PO SCH (09:41)
[2019-04-25] MEDS: IBUPROFEN 400 MG TABLET (FP) PO PRN (09:42)
[2019-04-25 10:07] VITALS: BP 154/98; PULSE 63; TEMP 97.2
--- NOTE | 2019-04-25 11:07 | PN ---
S CIWA - CIWA Score Nausea/Vomitin-No Nausea/No Vomiting Muscle Tremors: 3 Anxiety: 2 Agitation: 2 Paroxysmal Sweats: 1-Minimal Palms Moist Orientation: 0-Oriented Tacttile Disturbances: 0-None Auditory Disturbances: 0-None Visual Disturbances: 0-None Headache: 0-None Present CIWA-Ar Total Score: 8 BHS Progress Note (SOAP) Subjective: shakes sweats body aches Objective: 04/25/19 11:07 Vital Signs Temperature 97.2 F L 04/25/19 10:06 Pulse Rate 63 04/25/19 10:06 Respiratory Rate 18 04/25/19 10:06 Blood Pressure 154/98 04/25/19 10:06 O2 Sat by Pulse Oximetry (%) Laboratory Tests 04/23/19 04/23/19 04/23/19 15:10 15:10 15:10 WBC 6.3 RBC 4.31 Hgb 13.4 Hct 40.3 MCV 93.4 MCH 31.1 MCHC 33.3 RDW 13.0 Plt Count 241 MPV 9.4 Sodium 141 Potassium 3.5 Chloride 102 Carbon Dioxide 31 Anion Gap 9 BUN 9.4 Creatinine 0.7 Est GFR (CKD-EPI)AfAm 114.78 Est GFR (CKD-EPI)NonAf 99.03 Random Glucose 111 H Calcium 9.2 Total Bilirubin 0.6 AST 24 ALT 24 Alkaline Phosphatase 87 Total Protein 8.3 H Albumin 4.2 RPR Titer Nonreactive labs noted aaox3 ambulating no acute distress Assessment: 04/25/19 11:08 withdrawal sx Plan: continue detox increase fluids
[2019-04-26] MEDS ORDERED: diazePAM 5 MG TABLET PO ONE (06:00)
== END 2019-04-25 12:55 | disposition home or self-care (01) | DRG 897 ==
LOC: YASAS 10:34 → Y6N 15:06
PROVIDERS: ADMIT Surgery; ATTEND Surgery
PROC: HZ2ZZZZ Detoxification Services for Substance Abuse Treatment (ICD-10-PCS; principal; 2019-04-23)
DX: F11.23 Opioid dependence with withdrawal (principal); F10.230 Alcohol dependence with withdrawal, uncomplicated; F17.210 Nicotine dependence, cigarettes, uncomplicated; I10 Essential (primary) hypertension
CPT/HCPCS: 36415; 80053; 85027; 86593; J0735

== ENCOUNTER 2019-07-11 09:35 | Emergency (ER) | payer MEDICARE, OTHER ==
[2019-07-11 09:44] VITALS: BP 155/103; PULSE 76; TEMP 98.6; BMI 21.7
--- NOTE | 2019-07-11 11:07 | PDOC ---
History of Present Illness - General Chief Complaint: Injury Stated Complaint: FALL / BUMP ON HEAD Time Seen by Provider: 07/11/19 10:09 History Source: Patient Exam Limitations: No Limitations Past History - Past Medical History Allergies/Adverse Reactions: Allergies Allergy/AdvReac Type Severity Reaction Status Date / Time No Known Allergies Allergy Verified 07/11/19 09:38 Home Medications: Ambulatory Orders Losartan Potassium 25 mg PO DAILY #14 tablet 12/12/18 Anemia: No Asthma: No Cancer: No Cardiac Disorders: No CVA: No COPD: No CHF: No Dementia: No Diabetes: No GI Disorders: No Disorders: No HTN: Yes Hypercholesterolemia: No Kidney Stones: No Liver Disease: No Seizures: No Thyroid Disease: No - Surgical History Abdominal Surgery: No Appendectomy: No Cardiac Surgery: No Cholecystectomy: No Lung Surgery: No Neurologic Surgery: No Orthopedic Surgery: Yes (left wrist fx 2009) - Reproductive History Testicular Surgery: No - Psycho Social/Smoking Cessation Hx Smoking History: Current every day smoker Have you smoked in the past 12 months: Yes Number of Cigarettes Smoked Daily: 10 Information on smoking cessation initiated: No 'Breaking Loose' booklet given: 04/23/19 Hx Alcohol Use: Yes Drug/Substance Use Hx: Yes Substance Use Type: Alcohol, Heroin, Marijuana Hx Substance Use Treatment: Yes Trauma Specific PMHX - Complaint Specific PMHX Arthritis: No *Physical Exam - Vital Signs Last Vital Signs Temp Pulse Resp BP Pulse Ox 98.6 F 76 18 155/103 H 99 07/11/19 09:38 07/11/19 09:38 07/11/19 09:38 07/11/19 09:38 07/11/19 09:38 - Physical Exam General Appearance: No: Apparent Distress HEENT: positive: EOMI, MADELINE, Other (+lump above R eyebrow, +slight bruise below R eye, +R eye subconjuctival hemorrhage, no pain on eye movement) Neck: positive: Supple. negative: Tender midline Respiratory/Chest: positive: Lungs Clear, Normal Breath Sounds. negative: Respiratory Distress Cardiovascular: positive: Regular Rhythm, Regular Rate, S1, S2. negative: Murmur Neurologic: positive: physician intensivist II-XII NML intact, Fully Oriented, Alert, Normal Mood/ Affect, Motor Strength 5/5 ED Treatment Course - RADIOLOGY Radiology Studies Ordered: Category Date Time Status FACIAL BONES CT W/O CONTRAST [CT] Stat CT Scan 07/11/19 10:[address] WITHOUT CONTRAST [CT] Stat CT Scan 07/11/19 10:12 Taken Medical Decision Making - Medical Decision Making 63 y/o M hx of HTN presents s/p fall last week. Patient states he tripped in the rain, landing forward. Wanted to get evaluated today as states above his R eyebrow has not yet resolved. Denies LOC, headache, neck pain, sob, cp, abd pain , n/v, numbness/tingling/weakness of extremities, blurred vision, pain with eye movement. Patient is not on blood thinners S/P mechanical fall Plan: CT head, CT facial 07/11/19 11:04 CT head/facial bones negative 07/11/19 11:48 Discharge - Discharge Information Problems reviewed: Yes Clinical Impression/Diagnosis: Fall Qualifiers: Encounter type: initial encounter Qualified Code(s): W19.XXXA - Unspecified fall, initial encounter Scalp hematoma Qualifiers: Encounter type: initial encounter Qualified Code(s): S00.03XA - Contusion of scalp, initial encounter Condition: Stable Disposition: HOME - Admission No - Additional Discharge Information Prescription Drug Monitoring Program (I-STOP) results: I-STOP not reviewed - Follow up/Referral Referrals: Cecilia Brooks MD [Primary Care Provider] - 2 Days - Patient Discharge Instructions Patient Printed Discharge Instructions: DI for Hematoma (Bruise) Additional Instructions: Thank you for choosing [facility]. It was a pleasure taking care of you. Your CT scan of head and facial bones showed no blood or broken bones Apply ice over site of swelling Return to the Emergency Department if your symptoms worsen or persist, you have vomiting, weakness of extremities (arms and/or legs), changes in vision or walking or other concerning symptoms. - Post Discharge Activity
== END 2019-07-11 12:10 | disposition home or self-care (01) ==
LOC: JERFT 09:35
DX: S00.03XA Contusion of scalp, initial encounter (principal); S00.11XA Contusion of right eyelid and periocular area, initial encounter; H11.31 Conjunctival hemorrhage, right eye; W01.0XXA Fall on same level from slipping, tripping and stumbling without subsequent striking against object, initial encounter; Y93.89 Activity, other specified; Y92.89 Other specified places as the place of occurrence of the external cause; Y99.8 Other external cause status; I10 Essential (primary) hypertension; F17.210 Nicotine dependence, cigarettes, uncomplicated
CPT/HCPCS: 70450-TC; 70486-TC; 99281-25

== ENCOUNTER 2020-06-10 10:38 | Inpatient (IN) | payer OTHER ==
--- NOTE | 2020-06-10 11:11 | BHS.RME ---
Substance Use & Tx History - Substance Use History Alcohol Substance amount: 1/2 to one pint Awilda Frequency of use: Daily Substance route: Oral Date of Last Use: 06/10/20 (No seizure, no blackouts. 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) Heroin Substance amount: 5 bags Frequency of use: Daily Substance route: Inhalation (ex: sniffing or snorting) Date of Last Use: 06/10/20 (Began age 13y) Nicotine Substance amount: one pack Frequency of use: Daily Substance route: Smoking Date of Last Use: 06/10/20 (began age 13y) - Last Treatment Date of last treatment: April 23 to April 25, 2019 Treatment type: Substance Use Disorder (LAURIE) Where was last treatment: Detox Physical/Psych/Mental Status - Behavior General Behavior: Increased activity (restlessness, agitation) Eye Contact: Normal - Cooperativeness Cooperativeness: Cooperative - Thinking Thought Processes: Tight Thought content: Future oriented - Physical Health Problems Is patient presently having any pain?: No Does patient presently have any injuries (include location): No Does patient currently have a fever: No CIWA Nausea/Vomitin-No Nausea/No Vomiting Muscle Tremors: 4-Moderate,w/Arms Extend Anxiety: 2 Agitation: 2 Paroxysmal Sweats: No Perspiration Orientation: 0-Oriented Tacttile Disturbances: 0-None Auditory Disturbances: 0-None Visual Disturbances: 0-None Headache: 0-None Present (Meets criteria due to current level of intoxication, ILENE 0.032) CIWA-Ar Total Score: 8
--- NOTE | 2020-06-10 12:17 | HP ---
CIWA Score Nausea/Vomitin-No Nausea/No Vomiting Muscle Tremors: 4-Moderate,w/Arms Extend Anxiety: 2 Agitation: 2 Paroxysmal Sweats: No Perspiration Orientation: 0-Oriented Tacttile Disturbances: 0-None Auditory Disturbances: 0-None Visual Disturbances: 0-None Headache: 0-None Present (Meets criteria due to current level of intoxication, ILENE 0.032) CIWA-Ar Total Score: 8 - Admission Criteria OASAS Guidelines: Admission for Medically Managed Detox: Requires at least one of the followin. CIWA greater than 12 2. Seizures within the past 24 hours 3. Delirium tremens within the past 24 hours 4. Hallucinations within the past 24 hours 5. Acute intervention needed for co occurring medical disorder 6. Acute intervention needed for co occurring psychiatric disorder 7. Severe withdrawal that cannot be handled at a lower level of care (continued vomiting, continued diarrhea, abnormal vital signs) requiring intravenous medication and/or fluids 8. Admitting History and Physical - Admission Chief Complaint: Mr. Nelson presents to detox requesting admission to detox for alcohol use disorder. History of Present Illness: Mr. Nelson presents to detox requesting admission to detox for alcohol use disorder. PMH: HTN, can not recall the name of his medication PSH: Left wrist fracture tx with pins and screws Psych: none SOC: own apartment in [place] Legal: yes, court date June 17 Substance Use History Alcohol Substance amount: 1/2 to one pint Awilda Frequency of use: Daily Substance route: Oral Date of Last Use: 06/10/20 (No seizure, no blackouts. 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 Nelson meets criteria for admission due to current level of intoxication precludes assessment of full withdrawal symptoms. History Source: Patient Limitations to Obtaining History: No Limitations - Past Medical History Cardiovascular: Yes: HTN Psych: Yes: Addictions - Smoking History Smoking history: Current every day smoker Have you smoked in the past 12 months: Yes Aproximately how many cigarettes per day: 10 - Alcohol/Substance Use Hx Alcohol Use: Yes Number of Drinks Daily: 1 History of Substance Use: reports: Heroin Admission ROS [facility] - HPI Allergies/Adverse Reactions: Allergies Allergy/AdvReac Type Severity Reaction Status Date / Time No Known Allergies Allergy Verified 06/10/20 11:29 Exam Limitations: No Limitations - Ebola screening Have you traveled outside of the country in the last 21 days: No Have you been sick,other than usual withdrawal symptoms: No Do you have a fever: No - Review of Systems Constitutional: Unintentional Wgt. Loss (20 lb weight loss in the past one year. Earlier pt denied weight loss) EENT: reports: Blurred Vision (glasses for reading, does not have with him) Respiratory: reports: No Symptoms reported Cardiac: reports: No Symptoms Reported GI: reports: No Symptoms Reported : reports: No Symptoms Reported Musculoskeletal: reports: No Symptoms Reported Integumentary: reports: No Symptoms Reported Neuro: reports: No Symptoms reported Endocrine: reports: No Symptoms Reported Hematology: reports: No Symptoms Reported Psychiatric: reports: Anxious Patient History - Patient Medical History Hx Anemia: No Hx Asthma: No Hx Chronic Obstructive Pulmonary Disease (COPD): No Hx Cancer: No Hx Cardiac Disorders: No Hx Congestive Heart Failure: No Hx Hypertension: Yes (PT UNSURE WHICH MEDICATION TAKEN) Hx Hypercholesterolemia: No Hx Pacemaker: No HX Cerebrovascular Accident: No Hx Seizures: No Hx Dementia: No Hx Diabetes: No Hx Gastrointestinal Disorders: No Hx Liver Disease: No Hx Genitourinary Disorders: No Hx Sexually Transmitted Disorders: No Hx Renal Disease (ESRD): No Hx Thyroid Disease: No Hx Human Immunodeficiency Virus (HIV): No Hx Hepatitis C: No Hx Depression: No Hx Suicide Attempt: No Hx Bipolar Disorder: No Hx Schizophrenia: No - Patient Surgical History Past Surgical History: Yes Hx Neurologic Surgery: No Hx Cataract Extraction: No Hx Cardiac Surgery: No Hx Lung Surgery: No Hx Breast Surgery: No Hx Breast Biopsy: No Hx Abdominal Surgery: No Hx Appendectomy: No Hx Cholecystectomy: No Hx Genitourinary Surgery: No Hx Section: No Hx Orthopedic Surgery: Yes (left wrist fx 2009) Hx Hysterectomy: No Anesthesia Reaction: No - PPD History Previous Implant?: Yes Documented Results: Negative w/proof Implanted On Prior [facility] Admission?: No Date: 12/11/18 Results: 0MM - Smoking Cessation Smoking history: Current every day smoker Have you smoked in the past 12 months: Yes Aproximately how many cigarettes per day: 20 Cigars Per Day: 0 Hx Chewing Tobacco Use: No Initiated information on smoking cessation: Yes 'Breaking Loose' booklet given: 06/10/20 Admission Physical Exam [facility] - Vital Signs Vital Signs: Vitals 154/88 HR 93 RR 18 temp 97.9 sat 97% UDS: THC, FEN, MOR, MTD - Physical General Appearance: Yes: No Apparent Distress, Nourished, Irritable, Anxious HEENTM: Yes: EOMI, Hearing grossly Normal, Normocephalic, Normal Voice Respiratory: Yes: Lungs Clear, No Respiratory Distress, No Accessory Muscle Use Neck: Yes: Within Normal Limits, Supple Breast: Yes: Breast Exam Deferred Cardiology: Yes: Regular Rhythm, Regular Rate Abdominal: Yes: Normal Bowel Sounds, Non Tender, Flat, Soft Genitourinary: Yes: Other (deferred) Back: Yes: Normal Inspection Musculoskeletal: Yes: Gait Steady Extremities: Yes: Normal Inspection, Other (varicose veins left calf) Integumentary: Yes: Within Normal Limits - Diagnostic (1) Methadone maintenance therapy patient Current Visit: Yes Status: Acute Comment: 1. need verification (2) Alcohol dependence with uncomplicated withdrawal Current Visit: No Status: Chronic Comment: 1. admit to detox 2. Librium protocol 3. routine labs 4. comfort medication (3) Hypertension Current Visit: No Status: Chronic Qualifiers: Hypertension type: essential hypertension Qualified Code(s): I10 - Essential (primary) hypertension Comment: 1. monitor vitals 2. renew home med (4) Nicotine dependence Current Visit: No Status: Chronic Qualifiers: Nicotine product type: cigarettes Substance use status: uncomplicated Qualified Code(s): F17.210 - Nicotine dependence, cigarettes, uncomplicated Comment: 1. Nicotine replacement therapy Cleared for Admission [facility] - Detox or Rehab [facility] Level of Care: Medically Managed Detox Regimen/Protocol: Librium Breathalyzer - Breathalyzer Breathalyzer: 0.032 Urine Drug Screen - Test Device Lot number: [id number] Expiration date: 04/30/21 - Control Is test valid?: Yes - Results Drug screen NEGATIVE: No Urine drug screen results: THC-Marijuana, FEN-Fentanyl, MOP-Opiates, OXY- Oxycodone, BZO-Benzodiazepines Inpatient Rehab Admission - Rehab Decision to Admit Inpatient rehab admission?: No
[2020-06-10] MEDS ORDERED: MAGNESIUM CITRATE 300 ML BOTTLE PO PRN (12:25)
[2020-06-10] MEDS ORDERED: MAGNESIUM HYDROX 2400MG/30ML ORAL SUSPENSION 30 ML CUP PO PRN (12:25)
[2020-06-10] MEDS ORDERED: IBUPROFEN 400 MG TABLET (FP) PO PRN (12:25)
[2020-06-10] MEDS ORDERED: chlordiazePOXIDE HCL 25 MG CAPSULE PO PRN (12:25)
[2020-06-10] MEDS ORDERED: BISMUTH SUBSALICYLATE 262 MG/15 ML BTL PO PRN (12:25)
[2020-06-10] MEDS ORDERED: MENTHOL/PHENOL 1 EACH UD MM PRN (12:25)
[2020-06-10] MEDS ORDERED: MAG HYDROX/AL HYDROX/SIMETH 30 ML UNIT-DOSE CUP PO PRN (12:25)
[2020-06-10] MEDS ORDERED: ONDANSETRON *ODT* 4 MG TABLET SL PRN (12:25)
[2020-06-10] MEDS ORDERED: NICOTINE POLACRILEX 2 MG GUM BUC PRN (12:25)
[2020-06-10] MEDS ORDERED: ACETAMINOPHEN 325 MG TABLET (FP) PO PRN ×2 (12:25)
[2020-06-10] MEDS ORDERED: METHOCARBAMOL 500 MG TABLET PO PRN (12:25)
[2020-06-10 12:44] VITALS: BMI 19.0
[2020-06-10] MEDS: NICOTINE 21 MG/24 HOURS TOPICAL PATCH TD SCH (13:00)
[2020-06-10] MEDS: LOSARTAN POTASSIUM 25 MG TABLET PO SCH (13:24)
[2020-06-10] MEDS ORDERED: hydrOXYzine PAMOATE 25 MG CAPSULE (FP) PO SCH (14:00)
--- NOTE | 2020-06-10 14:06 | EKG ---
Test Reason : Blood Pressure : / mmHG Vent. Rate : 060 BPM Atrial Rate : 060 BPM P-R Int : 206 ms QRS Dur : 096 ms QT Int : 482 ms P-R-T Axes : 055 -21 048 degrees QTc Int : 482 ms NORMAL SINUS RHYTHM MINIMAL VOLTAGE CRITERIA FOR LVH, MAY BE NORMAL VARIANT SEPTAL INFARCT (CITED ON OR BEFORE 09-DEC-2018) ABNORMAL ECG WHEN COMPARED WITH ECG OF 09-DEC-2018 15:47, NO SIGNIFICANT CHANGE WAS FOUND Confirmed by JAMAR SHARIF MD ([id number]) on 06/10/2020 2:05:50 PM Referred By: Confirmed By:JAMAR SHARIF MD
[2020-06-10] MEDS ORDERED: hydrOXYzine PAMOATE 25 MG CAPSULE (FP) PO PRN (14:17)
[2020-06-10 17:34] LABS: HEMATOCRIT 33.8 % (35.4-49); HEMOGLOBIN 11.6 GM/dL (11.7-16.9); MCH 32.3 pg (25.7-33.7); MCHC 34.4 g/dl (32.0-35.9); MEAN CELL VOLUME 93.8 fl (80-96); MEAN PLT VOLUME 9.6 fl (7.5-11.1); RDW 13.9 % (11.9-15.9); WHITE BLOOD COUNT 6.8 K/mm3 (4.0-10.0)
[2020-06-10 17:40] LABS: ALBUMIN 3.7 g/dl (3.4-5.0); BLOOD UREA NITROGEN 9.3 mg/dL (7-18); CALCIUM 8.8 mg/dL (8.5-10.1); POTASSIUM 3.2 mmol/L (3.5-5.1)
[2020-06-10 17:45] LABS: BILIRUBIN,TOTAL 0.6 mg/dL (0.2-1); CREATININE 0.7 mg/dL (0.55-1.3); TOT PROT 7.7 g/dl (6.4-8.2)
[2020-06-10 18:29] LABS: PLATELET COUNT 154 K/MM3 (134-434)
[2020-06-10] MEDS: chlordiazePOXIDE HCL 25 MG CAPSULE PO SCH ×2 (18:33→22:26)
[2020-06-10] MEDS: THIAMINE HCL 100 MG TABLET (FP) PO SCH (22:26)
[2020-06-10] MEDS: MELATONIN 5 MG TABLETS PO SCH (22:26)
[2020-06-11] MEDS: chlordiazePOXIDE HCL 25 MG CAPSULE PO SCH ×4 (06:20→22:13)
[2020-06-11] MEDS ORDERED: METHADONE HCL 10 MG TABLET PO SCH (07:45)
[2020-06-11] MEDS ORDERED: METHADONE HCL 10 MG TABLET ONE (08:47)
[2020-06-11] MEDS ORDERED: METHADONE HCL 40 MG DISPERSABLE TABLET ONE (08:47)
[2020-06-11] MEDS: METHADONE 40 MG, METHADONE 20 MG PO SCH (10:29)
[2020-06-11] MEDS: LOSARTAN POTASSIUM 25 MG TABLET PO SCH (10:31)
[2020-06-11] MEDS: PRENATAL VITAMINS W/ FOLIC ACID TABLET (FP) PO SCH (10:32)
[2020-06-11] MEDS: NICOTINE 21 MG/24 HOURS TOPICAL PATCH TD SCH (10:32)
[2020-06-11] MEDS ORDERED: cloNIDine HCL 0.1 MG TABLET PO ONE (13:15)
--- NOTE | 2020-06-11 14:53 | PN ---
[facility] CIWA - CIWA Score Nausea/Vomitin-No Nausea/No Vomiting Muscle Tremors: 3 Anxiety: 3 Agitation: 3 Paroxysmal Sweats: 3 Orientation: 0-Oriented Tacttile Disturbances: 0-None Auditory Disturbances: 0-None Visual Disturbances: 0-None Headache: 0-None Present CIWA-Ar Total Score: 12 S Progress Note (SOAP) Subjective: body aches shakes sweats irritable agitation Objective: 06/11/20 14:52 Vital Signs Temperature 97.7 F 06/11/20 12:58 Pulse Rate 53 L 06/11/20 12:58 Respiratory Rate 16 06/11/20 12:58 Blood Pressure 181/95 H 06/11/20 12:58 O2 Sat by Pulse Oximetry (%) 96 06/11/20 08:41 Laboratory Tests 06/10/20 06/10/20 06/10/20 11:50 11:50 11:50 WBC 6.8 RBC 3.60 L Hgb 11.6 L Hct 33.8 L D MCV 93.8 MCH 32.3 MCHC 34.4 RDW 13.9 Plt Count 154 D MPV 9.6 Platelet Comment Rare giant plts Sodium 139 Potassium 3.2 L Chloride 100 Carbon Dioxide 29 Anion Gap 9 BUN 9.3 Creatinine 0.7 Est GFR (CKD-EPI)AfAm 113.98 Est GFR (CKD-EPI)NonAf 98.34 Random Glucose 89 Calcium 8.8 Total Bilirubin 0.6 AST 60 H ALT 38 Alkaline Phosphatase 113 Total Protein 7.7 Albumin 3.7 Syphilis Serology Non-reactive COVID-19 ([facility]CILIA) 06/10/20 14:00 WBC RBC Hgb Hct MCV MCH MCHC RDW Plt Count MPV Platelet Comment Sodium Potassium Chloride Carbon Dioxide Anion Gap BUN Creatinine Est GFR (CKD-EPI)AfAm Est GFR (CKD-EPI)NonAf Random Glucose Calcium Total Bilirubin AST ALT Alkaline Phosphatase Total Protein Albumin Syphilis Serology COVID-19 (CECILIA) Not detected labs noted potassium 3.2; will order [id number] ambulating no acute distress Assessment: 06/11/20 14:54 withdrawals Plan: continue detox increase fluids kdur [id number] bid x 2 days ordered
[2020-06-11] MEDS: MELATONIN 5 MG TABLETS PO SCH (22:13)
[2020-06-11] MEDS: THIAMINE HCL 100 MG TABLET (FP) PO SCH (22:13)
[2020-06-11] MEDS: POTASSIUM CHLORIDE TABS 20 MEQ TABLET.ER (FP) PO SCH (22:13)
[2020-06-12] MEDS ORDERED: METHADONE HCL 40 MG DISPERSABLE TABLET ONE (04:53)
[2020-06-12] MEDS ORDERED: METHADONE HCL 10 MG TABLET ONE (04:53)
[2020-06-12] MEDS: METHADONE 40 MG, METHADONE 20 MG PO SCH (06:39)
[2020-06-12] MEDS: chlordiazePOXIDE HCL 25 MG CAPSULE PO SCH ×4 (06:40→22:43)
[2020-06-12] MEDS ORDERED: HYDROCHLOROTHIAZIDE 12.5 MG CAPSULE (FP) PO SCH (10:00)
[2020-06-12] MEDS ORDERED: amLODIPine BESYLATE 5 MG TABLET (FP) PO SCH (10:00)
[2020-06-12] MEDS: PRENATAL VITAMINS W/ FOLIC ACID TABLET (FP) PO SCH (10:36)
[2020-06-12] MEDS: LOSARTAN POTASSIUM 25 MG TABLET PO SCH (10:36)
[2020-06-12] MEDS: NICOTINE 21 MG/24 HOURS TOPICAL PATCH TD SCH (10:36)
[2020-06-12] MEDS: POTASSIUM CHLORIDE TABS 20 MEQ TABLET.ER (FP) PO SCH ×2 (10:36→22:43)
--- NOTE | 2020-06-12 17:40 | PN ---
[facility] CIWA - CIWA Score Nausea/Vomitin-No Nausea/No Vomiting Muscle Tremors: 2 Anxiety: 2 Agitation: 2 Paroxysmal Sweats: No Perspiration Orientation: 0-Oriented Tacttile Disturbances: 0-None Auditory Disturbances: 1-Very Mild Visual Disturbances: 2-Mild Sensitivity Headache: 0-None Present CIWA-Ar Total Score: 9 S Progress Note (SOAP) Subjective: Fatigue, Body Aches, Anxious, Interrupted Sleep. Objective: Patient A & O X 3, Observed Ambulating on Detox Unit Unassisted. In No Acute Distress. 06/12/20 17:37 Vital Signs Temperature 97.9 F 06/12/20 12:30 Pulse Rate 61 06/12/20 12:30 Respiratory Rate 16 06/12/20 12:30 Blood Pressure 146/92 06/12/20 12:30 O2 Sat by Pulse Oximetry (%) 97 06/12/20 12:30 Laboratory Tests 06/10/20 06/10/20 06/10/20 11:50 11:50 11:50 WBC 6.8 RBC 3.60 L Hgb 11.6 L Hct 33.8 L D MCV 93.8 MCH 32.3 MCHC 34.4 RDW 13.9 Plt Count 154 D MPV 9.6 Platelet Comment Rare giant plts Sodium 139 Potassium 3.2 L Chloride 100 Carbon Dioxide 29 Anion Gap 9 BUN 9.3 Creatinine 0.7 Est GFR (CKD-EPI)AfAm 113.98 Est GFR (CKD-EPI)NonAf 98.34 Random Glucose 89 Calcium 8.8 Total Bilirubin 0.6 AST 60 H ALT 38 Alkaline Phosphatase 113 Total Protein 7.7 Albumin 3.7 Syphilis Serology Non-reactive COVID-19 ([facility]IA) 06/10/20 14:00 WBC RBC Hgb Hct MCV MCH MCHC RDW Plt Count MPV Platelet Comment Sodium Potassium Chloride Carbon Dioxide Anion Gap BUN Creatinine Est GFR (CKD-EPI)AfAm Est GFR (CKD-EPI)NonAf Random Glucose Calcium Total Bilirubin AST ALT Alkaline Phosphatase Total Protein Albumin Syphilis Serology COVID-19 ([facility]ILIA) Not detected Lab Results noted. Assessment: 06/12/20 17:38 WITHDRAWAL SYMPTOMS. ANEMIA HYPOAKLEMIA ELEVATED AST LEVEL. 06/12/20 17:39 Plan: Continue Detox. Continue K-Dur for low K Level noted on Detox Admission Laboratory Assessment. Repeat K level ordered fro tomorrow AM. Patient is currently receiving daily MVI containing B Vitamins and Iron while admitted for Detox.
[2020-06-12] MEDS: THIAMINE HCL 100 MG TABLET (FP) PO SCH (22:43)
[2020-06-12] MEDS: MELATONIN 5 MG TABLETS PO SCH (22:44)
[2020-06-13] MEDS ORDERED: chlordiazePOXIDE HCL 10 MG CAPSULE PO PRN
[2020-06-13] MEDS ORDERED: chlordiazePOXIDE HCL 10 MG CAPSULE PO SCH (05:00)
[2020-06-13] MEDS ORDERED: METHADONE HCL 10 MG TABLET ONE (05:07)
[2020-06-13] MEDS ORDERED: METHADONE HCL 40 MG DISPERSABLE TABLET ONE (05:07)
[2020-06-13] MEDS: METHADONE 40 MG, METHADONE 20 MG PO SCH (06:17)
[2020-06-13 09:40] VITALS: BP 139/98; PULSE 74; TEMP 98.6
--- NOTE | 2020-06-13 10:16 | DS ---
[facility] Detox Discharge Summary Admission Date: 06/10/20 Discharge Date: 06/13/20 - History Present History: Alcohol Dependence, Cannabis Dependence, MMTP Additional Comments: Alert and oriented x3, in no acute respiratory distress. Full ROM, ambulatory in the unit without assistance. Skin warm to touch. Detox protocol not completed, patient requesting to leave now.Encouraged to stay but refused. Pertinent Past History: History of HTN, left wrist fracture, heroin, alcohol, cannabis and nicotine use disorder. - Physical Exam Results Vital Signs: Vital Signs Temperature 98.6 F 06/13/20 08:31 Pulse Rate 74 06/13/20 08:31 Respiratory Rate 16 06/13/20 08:31 Blood Pressure 139/98 06/13/20 08:31 O2 Sat by Pulse Oximetry (%) 95 06/13/20 06:06 Vital Signs 06/13/20 06/13/20 06:06 08:31 Temperature 97.3 F L 98.6 F Pulse Rate 55 L 74 Respiratory 16 16 Rate Blood Pressure 147/87 139/98 O2 Sat by Pulse 95 Oximetry (%) Laboratory Last Values WBC 6.8 K/mm3 (4.0-10.0) 06/10/20 11:50 RBC 3.60 M/mm3 (4.00-5.60) L 06/10/20 11:50 Hgb 11.6 GM/dL (11.7-16.9) L 06/10/20 11:50 Hct 33.8 % (35.4-49) L D 06/10/20 11:50 MCV 93.8 fl (80-96) 06/10/20 11:50 MCH 32.3 pg (25.7-33.7) 06/10/20 11:50 MCHC 34.4 g/dl (32.0-35.9) 06/10/20 11:50 RDW 13.9 % (11.9-15.9) 06/10/20 11:50 Plt Count 154 K/MM3 (134-434) D 06/10/20 11:50 MPV 9.6 fl (7.5-11.1) 06/10/20 11:50 Platelet Comment Rare giant plts 06/10/20 11:50 Sodium 139 mmol/L (136-145) 06/10/20 11:50 Potassium 3.2 mmol/L (3.5-5.1) L 06/10/20 11:50 Chloride 100 mmol/L (98-107) 06/10/20 11:50 Carbon Dioxide 29 mmol/L (21-32) 06/10/20 11:50 Anion Gap 9 MMOL/L (8-16) 06/10/20 11:50 BUN 9.3 mg/dL (7-18) 06/10/20 11:50 Creatinine 0.7 mg/dL (0.55-1.3) 06/10/20 11:50 Est GFR (CKD-EPI)AfAm 113.98 06/10/20 11:50 Est GFR (CKD-EPI)NonAf 98.34 06/10/20 11:50 Random Glucose 89 mg/dL (74-106) 06/10/20 11:50 Calcium 8.8 mg/dL (8.5-10.1) 06/10/20 11:50 Total Bilirubin 0.6 mg/dL (0.2-1) 06/10/20 11:50 AST 60 U/L (15-37) H 06/10/20 11:50 ALT 38 U/L (13-61) 06/10/20 11:50 Alkaline Phosphatase 113 U/L (45-117) 06/10/20 11:50 Total Protein 7.7 g/dl (6.4-8.2) 06/10/20 11:50 Albumin 3.7 g/dl (3.4-5.0) 06/10/20 11:50 Syphilis Serology Non-reactive (NONREACTIVE) 06/10/20 11:50 COVID-19 ([facility]ILIA) Not detected (Not Detected) 06/10/20 14:00 Labs noted. Pertinent Admission Physical Exam Findings: Withdrawal symptoms. - Medication Discharge Medications: Ambulatory Orders Losartan Potassium 25 mg PO DAILY 06/10/20 - Diagnosis (1) Methadone maintenance therapy patient Status: Acute (2) Alcohol dependence with uncomplicated withdrawal Status: Chronic (3) Hypertension Status: Chronic Qualifiers: Hypertension type: essential hypertension Qualified Code(s): I10 - Essential (primary) hypertension (4) Nicotine dependence Status: Chronic Qualifiers: Nicotine product type: cigarettes Substance use status: uncomplicated Qualified Code(s): F17.210 - Nicotine dependence, cigarettes, uncomplicated - AMA Did Patient Leave Against Medical Advice: Yes CIWA Score - CIWA Score Nausea/Vomitin-No Nausea/No Vomiting Muscle Tremors: 2 Anxiety: 2 Agitation: 2 Paroxysmal Sweats: No Perspiration Orientation: 0-Oriented Tacttile Disturbances: 0-None Auditory Disturbances: 1-Very Mild Visual Disturbances: 0-None Headache: 0-None Present CIWA-Ar Total Score: 7
[2020-06-14] MEDS ORDERED: chlordiazePOXIDE HCL 10 MG CAPSULE PO SCH (05:00)
[2020-06-15] MEDS ORDERED: chlordiazePOXIDE HCL 10 MG CAPSULE PO ONE (05:00)
== END 2020-06-13 09:55 | disposition left against medical advice (07) | DRG 894 ==
LOC: YASAS 10:38 → Y6N 12:03
PROVIDERS: ADMIT Allergy & Immunology; ATTEND Allergy & Immunology
PROC: HZ2ZZZZ Detoxification Services for Substance Abuse Treatment (ICD-10-PCS; principal; 2020-06-10)
DX: F10.230 Alcohol dependence with withdrawal, uncomplicated (principal); F11.20 Opioid dependence, uncomplicated; Z68.1 Body mass index [BMI] 19.9 or less, adult; F12.20 Cannabis dependence, uncomplicated; F17.210 Nicotine dependence, cigarettes, uncomplicated; I10 Essential (primary) hypertension; D64.9 Anemia, unspecified; E87.6 Hypokalemia; R74.0 Nonspecific elevation of levels of transaminase and lactic acid dehydrogenase [LDH]; R63.4 Abnormal weight loss; I83.92 Asymptomatic varicose veins of left lower extremity; Z87.81 Personal history of (healed) traumatic fracture
CPT/HCPCS: 36415; 80053; 84132; 85027; 86780; 93005; 93010; J0735; U0003

== ENCOUNTER 2020-11-12 10:27 | Inpatient (IN) | payer OTHER ==
[2020-11-12 12:32] VITALS: BMI 19.3
[2020-11-12] MEDS ORDERED: MAG HYDROX/AL HYDROX/SIMETH 30 ML UNIT-DOSE CUP PO PRN (14:23)
[2020-11-12] MEDS ORDERED: ACETAMINOPHEN 325 MG TABLET (FP) PO PRN ×2 (14:23)
[2020-11-12] MEDS ORDERED: chlordiazePOXIDE HCL 25 MG CAPSULE PO PRN ×2 (14:23→14:37)
[2020-11-12] MEDS ORDERED: BISMUTH SUBSALICYLATE 524 MG/30 ML UD PO PRN (14:23)
[2020-11-12] MEDS ORDERED: NICOTINE POLACRILEX 2 MG GUM BUC PRN (14:23)
[2020-11-12] MEDS ORDERED: MAGNESIUM HYDROX 2400MG/30ML ORAL SUSPENSION 30 ML CUP PO PRN (14:23)
[2020-11-12] MEDS ORDERED: IBUPROFEN 400 MG TABLET (FP) PO PRN (14:23)
[2020-11-12] MEDS ORDERED: ONDANSETRON *ODT* 4 MG TABLET SL PRN (14:23)
[2020-11-12] MEDS ORDERED: METHOCARBAMOL 500 MG TABLET PO PRN (14:23)
[2020-11-12] MEDS ORDERED: MAGNESIUM CITRATE 300 ML BOTTLE PO PRN (14:23)
[2020-11-12] MEDS ORDERED: MENTHOL/PHENOL 1 EACH UD MM PRN (14:23)
[2020-11-12] MEDS ORDERED: cloNIDine HCL 0.1 MG TABLET PO ONE ×2 (14:45→21:26)
[2020-11-12] MEDS ORDERED: METHADONE HCL 10 MG TABLET ONE (14:54)
[2020-11-12] MEDS ORDERED: METHADONE HCL 40 MG DISPERSABLE TABLET ONE (14:55)
[2020-11-12] MEDS ORDERED: METHADONE 40 MG, METHADONE 20 MG PO ONE (15:00)
[2020-11-12] MEDS ORDERED: METHADONE HCL 10 MG TABLET PO SCH (15:00)
[2020-11-12 15:32] LABS: POTASSIUM 3.6 mmol/L (3.5-5.1)
[2020-11-12 15:34] LABS: ALBUMIN 3.9 g/dl (3.4-5.0); BLOOD UREA NITROGEN 13.8 mg/dL (7-18); CALCIUM 8.8 mg/dL (8.5-10.1)
[2020-11-12 15:35] LABS: HEMOGLOBIN 11.8 GM/dL (11.7-16.9); MCH 31.5 pg (25.7-33.7); MCHC 33.7 g/dl (32.0-35.9); MEAN CELL VOLUME 93.5 fl (80-96); MEAN PLT VOLUME 9.5 fl (7.5-11.1); PLATELET COUNT 164 K/MM3 (134-434); RBC 3.75 M/mm3 (4.00-5.60); RDW 13.6 % (11.9-15.9); WHITE BLOOD COUNT 10.1 K/mm3 (4.0-10.0)
[2020-11-12 15:38] LABS: CREATININE 0.9 mg/dL (0.55-1.3)
[2020-11-12 15:39] LABS: BILIRUBIN,TOTAL 0.7 mg/dL (0.2-1)
[2020-11-12] MEDS ORDERED: chlordiazePOXIDE HCL 25 MG CAPSULE PO SCH (17:00)
[2020-11-12] MEDS: chlordiazePOXIDE HCL 25 MG CAPSULE PO SCH ×2 (17:26→22:10)
[2020-11-12] MEDS: hydrOXYzine PAMOATE 25 MG CAPSULE (FP) PO SCH ×2 (17:26→22:10)
[2020-11-12] MEDS: THIAMINE HCL 100 MG TABLET (FP) PO SCH (22:10)
[2020-11-12] MEDS: MELATONIN 5 MG TABLETS PO SCH (22:10)
[2020-11-13] MEDS ORDERED: METHADONE HCL 10 MG TABLET ONE (04:26)
[2020-11-13] MEDS ORDERED: METHADONE HCL 40 MG DISPERSABLE TABLET ONE (04:26)
[2020-11-13] MEDS ORDERED: METHADONE HCL 10 MG TABLET PO SCH (06:00)
[2020-11-13] MEDS ORDERED: cloNIDine HCL 0.1 MG TABLET PO ONE (06:20)
[2020-11-13] MEDS: chlordiazePOXIDE HCL 25 MG CAPSULE PO SCH ×4 (06:34→22:25)
[2020-11-13] MEDS: hydrOXYzine PAMOATE 25 MG CAPSULE (FP) PO SCH ×5 (06:34→22:26)
[2020-11-13] MEDS: METHADONE 40 MG, METHADONE 20 MG PO SCH (06:34)
[2020-11-13] MEDS: LOSARTAN POTASSIUM 25 MG TABLET PO SCH (10:50)
[2020-11-13] MEDS: PRENATAL VITAMINS W/ FOLIC ACID TABLET (FP) PO SCH (10:50)
[2020-11-13 11:54] LABS: POTASSIUM 3.2 mmol/L (3.5-5.1)
[2020-11-13 11:57] LABS: CALCIUM 9.5 mg/dL (8.5-10.1)
[2020-11-13 11:58] LABS: ALBUMIN 3.6 g/dl (3.4-5.0); BLOOD UREA NITROGEN 12.8 mg/dL (7-18)
[2020-11-13 12:01] LABS: CREATININE 0.8 mg/dL (0.55-1.3)
[2020-11-13 12:02] LABS: BILIRUBIN,TOTAL 1.5 mg/dL (0.2-1)
[2020-11-13] MEDS ORDERED: POTASSIUM CHLORIDE TABS 20 MEQ TABLET.ER (FP) PO ONE (13:14)
[2020-11-13] MEDS ORDERED: LOSARTAN POTASSIUM 50 MG TABLET PO ONE (19:28)
[2020-11-13] MEDS: THIAMINE HCL 100 MG TABLET (FP) PO SCH (22:26)
[2020-11-13] MEDS: MELATONIN 5 MG TABLETS PO SCH (22:27)
[2020-11-14] MEDS ORDERED: chlordiazePOXIDE HCL 25 MG CAPSULE PO SCH (05:00)
[2020-11-14] MEDS ORDERED: METHADONE HCL 10 MG TABLET ONE (05:07)
[2020-11-14] MEDS ORDERED: METHADONE HCL 40 MG DISPERSABLE TABLET ONE (05:07)
[2020-11-14] MEDS: METHADONE 40 MG, METHADONE 20 MG PO SCH (06:13)
[2020-11-14] MEDS: hydrOXYzine PAMOATE 25 MG CAPSULE (FP) PO SCH ×5 (06:15→22:47)
[2020-11-14] MEDS: chlordiazePOXIDE HCL 25 MG CAPSULE PO SCH ×4 (06:16→22:53)
[2020-11-14] MEDS: LOSARTAN POTASSIUM 50 MG TABLET PO SCH (09:58)
[2020-11-14] MEDS: PRENATAL VITAMINS W/ FOLIC ACID TABLET (FP) PO SCH (09:58)
[2020-11-14] MEDS: cloNIDine HCL 0.1 MG TABLET PO PRN ×2 (14:52→21:42)
[2020-11-14] MEDS: MELATONIN 5 MG TABLETS PO SCH (21:41)
[2020-11-14] MEDS: THIAMINE HCL 100 MG TABLET (FP) PO SCH (21:42)
[2020-11-15] MEDS ORDERED: chlordiazePOXIDE HCL 10 MG CAPSULE PO PRN ×2
[2020-11-15] MEDS ORDERED: METHADONE HCL 10 MG TABLET ONE (04:50)
[2020-11-15] MEDS ORDERED: METHADONE HCL 40 MG DISPERSABLE TABLET ONE (04:50)
[2020-11-15] MEDS ORDERED: chlordiazePOXIDE HCL 10 MG CAPSULE PO SCH (05:00)
[2020-11-15] MEDS: hydrOXYzine PAMOATE 25 MG CAPSULE (FP) PO SCH ×5 (06:19→22:47)
[2020-11-15] MEDS: chlordiazePOXIDE HCL 10 MG CAPSULE PO SCH ×4 (06:19→22:47)
[2020-11-15] MEDS: METHADONE 40 MG, METHADONE 20 MG PO SCH (06:20)
[2020-11-15] MEDS: LOSARTAN POTASSIUM 25 MG TABLET PO SCH (10:38)
[2020-11-15] MEDS: PRENATAL VITAMINS W/ FOLIC ACID TABLET (FP) PO SCH (10:39)
[2020-11-15] MEDS: LOSARTAN POTASSIUM 50 MG TABLET PO SCH (10:39)
[2020-11-15] MEDS: cloNIDine HCL 0.1 MG TABLET PO PRN (17:29)
[2020-11-15] MEDS: THIAMINE HCL 100 MG TABLET (FP) PO SCH (22:46)
[2020-11-15] MEDS: MELATONIN 5 MG TABLETS PO SCH (22:46)
[2020-11-16] MEDS ORDERED: METHADONE HCL 40 MG DISPERSABLE TABLET ONE (03:20)
[2020-11-16] MEDS ORDERED: METHADONE HCL 10 MG TABLET ONE (03:20)
[2020-11-16] MEDS ORDERED: chlordiazePOXIDE HCL 10 MG CAPSULE PO SCH (05:00)
[2020-11-16] MEDS: METHADONE 40 MG, METHADONE 20 MG PO SCH (06:16)
[2020-11-16] MEDS: hydrOXYzine PAMOATE 25 MG CAPSULE (FP) PO SCH ×3 (06:16→09:18)
[2020-11-16] MEDS: chlordiazePOXIDE HCL 10 MG CAPSULE PO SCH ×3 (06:16→18:16)
[2020-11-16] MEDS: PRENATAL VITAMINS W/ FOLIC ACID TABLET (FP) PO SCH (09:19)
[2020-11-16] MEDS: LOSARTAN POTASSIUM 50 MG TABLET PO SCH (09:19)
[2020-11-16] MEDS: cloNIDine HCL 0.1 MG TABLET PO PRN (18:18)
[2020-11-16] MEDS: THIAMINE HCL 100 MG TABLET (FP) PO SCH (21:31)
[2020-11-16] MEDS: MELATONIN 5 MG TABLETS PO SCH (21:31)
[2020-11-17] MEDS ORDERED: METHADONE HCL 40 MG DISPERSABLE TABLET ONE (03:14)
[2020-11-17] MEDS ORDERED: METHADONE HCL 10 MG TABLET ONE (03:14)
[2020-11-17] MEDS ORDERED: chlordiazePOXIDE HCL 10 MG CAPSULE PO ONE ×2 (05:00)
[2020-11-17] MEDS: METHADONE 40 MG, METHADONE 20 MG PO SCH (06:01)
[2020-11-17] MEDS: PRENATAL VITAMINS W/ FOLIC ACID TABLET (FP) PO SCH (09:45)
[2020-11-17] MEDS: LOSARTAN POTASSIUM 50 MG TABLET PO SCH (09:45)
[2020-11-17 18:28] VITALS: BP 121/85; PULSE 78; TEMP 97.7
== END 2020-11-17 19:29 | disposition other institution (70) | DRG 897 ==
LOC: YASAS 10:27 → Y6N 13:55
PROVIDERS: ADMIT Allergy & Immunology; ATTEND Allergy & Immunology
PROC: HZ2ZZZZ Detoxification Services for Substance Abuse Treatment (ICD-10-PCS; principal; 2020-11-12)
DX: F10.230 Alcohol dependence with withdrawal, uncomplicated (principal); F11.20 Opioid dependence, uncomplicated; Z68.1 Body mass index [BMI] 19.9 or less, adult; F12.20 Cannabis dependence, uncomplicated; F17.210 Nicotine dependence, cigarettes, uncomplicated; F19.24 Other psychoactive substance dependence with psychoactive substance-induced mood disorder; E87.6 Hypokalemia; E80.6 Other disorders of bilirubin metabolism; I10 Essential (primary) hypertension; R63.4 Abnormal weight loss
CPT/HCPCS: 36415; 80053; 82962; 84132; 85027; 86780; C9803; J0735; U0003

== ENCOUNTER 2020-11-17 19:37 | Inpatient (IN) | payer OTHER ==
[~2020-11-17 19:37] MED LIST: IBUPROFEN 400 MG TABLET (FP) PO PRN; LOPERAMIDE HCL 2 MG CAPSULE PO PRN; MAG HYDROX/AL HYDROX/SIMETH 30 ML UNIT-DOSE CUP PO PRN; MAGNESIUM CITRATE 300 ML BOTTLE PO PRN; P-EPHED 60MG/TRIPROLIDI 2.5MG TABLET PO PRN; guaiFENesin 200 MG/10 ML 10 ML UNIT-DOSE CUPS PO PRN
[2020-11-17] MEDS: MELATONIN 5 MG TABLETS PO SCH (22:04)
[2020-11-17] MEDS: THIAMINE HCL 100 MG TABLET (FP) PO SCH (22:31)
[2020-11-18] MEDS: METHADONE 40 MG, METHADONE 20 MG PO SCH (06:45)
[2020-11-18] MEDS ORDERED: METHADONE HCL 10 MG TABLET ONE (06:45)
[2020-11-18] MEDS ORDERED: METHADONE HCL 40 MG DISPERSABLE TABLET ONE (06:45)
[2020-11-18] MEDS ORDERED: METHADONE HCL 40 MG DISPERSABLE TABLET PO SCH (10:00)
[2020-11-18] MEDS: LOSARTAN POTASSIUM 50 MG TABLET PO SCH (10:15)
[2020-11-18] MEDS: PRENATAL VITAMINS W/ FOLIC ACID TABLET (FP) PO SCH (10:15)
[2020-11-18] MEDS: MELATONIN 5 MG TABLETS PO SCH (21:32)
[2020-11-18] MEDS: THIAMINE HCL 100 MG TABLET (FP) PO SCH (21:32)
[2020-11-19] MEDS: METHADONE 40 MG, METHADONE 20 MG PO SCH (06:22)
[2020-11-19] MEDS ORDERED: METHADONE HCL 10 MG TABLET ONE (06:22)
[2020-11-19] MEDS ORDERED: METHADONE HCL 40 MG DISPERSABLE TABLET ONE (06:22)
[2020-11-19] MEDS: PRENATAL VITAMINS W/ FOLIC ACID TABLET (FP) PO SCH (10:00)
[2020-11-19] MEDS: LOSARTAN POTASSIUM 50 MG TABLET PO SCH (10:00)
[2020-11-19] MEDS: THIAMINE HCL 100 MG TABLET (FP) PO SCH (21:24)
[2020-11-19] MEDS: MELATONIN 5 MG TABLETS PO SCH (21:24)
[2020-11-20] MEDS ORDERED: METHADONE HCL 10 MG TABLET ONE (04:05)
[2020-11-20] MEDS ORDERED: METHADONE HCL 40 MG DISPERSABLE TABLET ONE (04:05)
[2020-11-20] MEDS: METHADONE 40 MG, METHADONE 20 MG PO SCH (06:06)
[2020-11-20] MEDS: LOSARTAN POTASSIUM 50 MG TABLET PO SCH (10:25)
[2020-11-20] MEDS: PRENATAL VITAMINS W/ FOLIC ACID TABLET (FP) PO SCH (10:25)
[2020-11-20] MEDS: MELATONIN 5 MG TABLETS PO SCH (21:35)
[2020-11-20] MEDS: MAGNESIUM HYDROX 2400MG/30ML ORAL SUSPENSION 30 ML CUP PO PRN (21:35)
[2020-11-20] MEDS: THIAMINE HCL 100 MG TABLET (FP) PO SCH (21:35)
[2020-11-21] MEDS ORDERED: METHADONE HCL 10 MG TABLET ONE (07:13)
[2020-11-21] MEDS: METHADONE 40 MG, METHADONE 20 MG PO SCH (07:13)
[2020-11-21] MEDS ORDERED: METHADONE HCL 40 MG DISPERSABLE TABLET ONE (07:13)
[2020-11-21] MEDS: PRENATAL VITAMINS W/ FOLIC ACID TABLET (FP) PO SCH (09:58)
[2020-11-21] MEDS: LOSARTAN POTASSIUM 50 MG TABLET PO SCH (09:58)
[2020-11-21] MEDS: THIAMINE HCL 100 MG TABLET (FP) PO SCH (21:29)
[2020-11-21] MEDS: MELATONIN 5 MG TABLETS PO SCH (21:29)
[2020-11-22] MEDS ORDERED: METHADONE HCL 40 MG DISPERSABLE TABLET ONE (03:19)
[2020-11-22] MEDS ORDERED: METHADONE HCL 10 MG TABLET ONE (03:19)
[2020-11-22] MEDS: METHADONE 40 MG, METHADONE 20 MG PO SCH (06:37)
[2020-11-22] MEDS ORDERED: cloNIDine HCL 0.1 MG TABLET PO ONE (06:41)
[2020-11-22] MEDS: LOSARTAN POTASSIUM 50 MG TABLET PO SCH (09:52)
[2020-11-22] MEDS: PRENATAL VITAMINS W/ FOLIC ACID TABLET (FP) PO SCH (09:52)
[2020-11-22] MEDS: ACETAMINOPHEN 325 MG TABLET (FP) PO PRN (13:20)
[2020-11-22] MEDS: CARBAMIDE PEROXIDE 6.5% OTIC 15 ML BOTTLE AD SCH ×2 (15:58→21:02)
[2020-11-22] MEDS: MELATONIN 5 MG TABLETS PO SCH (21:25)
[2020-11-22] MEDS: THIAMINE HCL 100 MG TABLET (FP) PO SCH (21:25)
[2020-11-23] MEDS ORDERED: METHADONE HCL 10 MG TABLET ONE (03:42)
[2020-11-23] MEDS ORDERED: METHADONE HCL 40 MG DISPERSABLE TABLET ONE (03:42)
[2020-11-23] MEDS: METHADONE 40 MG, METHADONE 20 MG PO SCH (06:38)
[2020-11-23] MEDS: LOSARTAN POTASSIUM 50 MG TABLET PO SCH (09:44)
[2020-11-23] MEDS: PRENATAL VITAMINS W/ FOLIC ACID TABLET (FP) PO SCH (09:44)
[2020-11-23] MEDS: CARBAMIDE PEROXIDE 6.5% OTIC 15 ML BOTTLE AD SCH ×2 (09:45→21:25)
[2020-11-23] MEDS: THIAMINE HCL 100 MG TABLET (FP) PO SCH (21:16)
[2020-11-23] MEDS: MELATONIN 5 MG TABLETS PO SCH (21:16)
[2020-11-23] MEDS ORDERED: PT OWN MED DRAWER 7, Y5N ONE (21:49)
[2020-11-24] MEDS ORDERED: METHADONE HCL 10 MG TABLET ONE (05:32)
[2020-11-24] MEDS ORDERED: METHADONE HCL 40 MG DISPERSABLE TABLET ONE (05:32)
[2020-11-24] MEDS: METHADONE 40 MG, METHADONE 20 MG PO SCH (06:44)
[2020-11-24] MEDS: LOSARTAN POTASSIUM 50 MG TABLET PO SCH (10:04)
[2020-11-24] MEDS: PRENATAL VITAMINS W/ FOLIC ACID TABLET (FP) PO SCH (10:04)
[2020-11-24] MEDS: CARBAMIDE PEROXIDE 6.5% OTIC 15 ML BOTTLE AD SCH ×2 (10:04→21:52)
[2020-11-24] MEDS: MAGNESIUM HYDROX 2400MG/30ML ORAL SUSPENSION 30 ML CUP PO PRN (10:06)
[2020-11-24] MEDS: ACETAMINOPHEN 325 MG TABLET (FP) PO PRN (13:13)
[2020-11-24] MEDS ORDERED: cloNIDine HCL 0.1 MG TABLET PO ONE (13:30)
[2020-11-24] MEDS: THIAMINE HCL 100 MG TABLET (FP) PO SCH (21:34)
[2020-11-24] MEDS: MELATONIN 5 MG TABLETS PO SCH (21:34)
[2020-11-25] MEDS ORDERED: METHADONE HCL 10 MG TABLET ONE (05:50)
[2020-11-25] MEDS ORDERED: METHADONE HCL 40 MG DISPERSABLE TABLET ONE (05:50)
[2020-11-25] MEDS: METHADONE 40 MG, METHADONE 20 MG PO SCH (06:49)
[2020-11-25] MEDS: PRENATAL VITAMINS W/ FOLIC ACID TABLET (FP) PO SCH (10:03)
[2020-11-25] MEDS: LOSARTAN POTASSIUM 50 MG TABLET PO SCH ×2 (10:03→21:24)
[2020-11-25] MEDS: CARBAMIDE PEROXIDE 6.5% OTIC 15 ML BOTTLE AD SCH ×2 (10:04→21:24)
[2020-11-25] MEDS: MELATONIN 5 MG TABLETS PO SCH (21:24)
[2020-11-25] MEDS: THIAMINE HCL 100 MG TABLET (FP) PO SCH (21:24)
[2020-11-26] MEDS ORDERED: METHADONE HCL 10 MG TABLET ONE (05:15)
[2020-11-26] MEDS ORDERED: METHADONE HCL 40 MG DISPERSABLE TABLET ONE (05:15)
[2020-11-26] MEDS: METHADONE 40 MG, METHADONE 20 MG PO SCH (06:42)
[2020-11-26] MEDS: CARBAMIDE PEROXIDE 6.5% OTIC 15 ML BOTTLE AD SCH (09:16)
[2020-11-26] MEDS: PRENATAL VITAMINS W/ FOLIC ACID TABLET (FP) PO SCH (09:16)
[2020-11-26] MEDS: LOSARTAN POTASSIUM 50 MG TABLET PO SCH ×2 (09:17→21:19)
[2020-11-26] MEDS ORDERED: amLODIPine BESYLATE 5 MG TABLET (FP) PO ONE (10:08)
[2020-11-26] MEDS: THIAMINE HCL 100 MG TABLET (FP) PO SCH (21:18)
[2020-11-26] MEDS: MELATONIN 5 MG TABLETS PO SCH (21:19)
[2020-11-27] MEDS ORDERED: METHADONE HCL 10 MG TABLET ONE (03:50)
[2020-11-27] MEDS ORDERED: METHADONE HCL 40 MG DISPERSABLE TABLET ONE (03:50)
[2020-11-27] MEDS: METHADONE 40 MG, METHADONE 20 MG PO SCH (06:19)
[2020-11-27 06:48] VITALS: PULSE 67; TEMP 97.3
[2020-11-27] MEDS ORDERED: PT OWN MED DRAWER 7, Y5N ONE (06:56)
[2020-11-27] MEDS: LOSARTAN POTASSIUM 50 MG TABLET PO SCH ×2 (06:56→09:59)
[2020-11-27 09:26] VITALS: BP 159/86
[2020-11-27] MEDS: PRENATAL VITAMINS W/ FOLIC ACID TABLET (FP) PO SCH (09:59)
[2020-11-27] MEDS ORDERED: amLODIPine BESYLATE 5 MG TABLET (FP) PO SCH (10:00)
== END 2020-11-27 11:05 | disposition home or self-care (01) | DRG 895 ==
LOC: YASAS 19:37 → Y5N 19:38 → Y3E 11-26 15:13
PROVIDERS: ADMIT Allergy & Immunology; ATTEND Allergy & Immunology
PROC: HZ42ZZZ Group Counseling for Substance Abuse Treatment, Cognitive-Behavioral (ICD-10-PCS; principal; 2020-11-17)
DX: F10.20 Alcohol dependence, uncomplicated (principal); F11.20 Opioid dependence, uncomplicated; G62.9 Polyneuropathy, unspecified; I10 Essential (primary) hypertension; H61.21 Impacted cerumen, right ear
CPT/HCPCS: 82962; C9803; J0735; U0003